=== PATIENT | female | born 1945 | race Caucasian/White ===

== ENCOUNTER 2016-11-18 07:25 | Day surgery (SDC) | payer MEDICARE, BC ==
[~2016-11-18] VITALS: Ht 152.4 cm; Wt 72.0 kg
[~2016-11-18 07:25] MED LIST: ASPIRIN 81M81 MG/TA2 PO; BENICAR40 MG PO; CO Q-1050 MG PO; COLACE 100100 MG/CAP PO; CRESTOR 10MG10 MG PO; CRESTOR5 MG PO; FENOGLIDE40 MG PO; LOFIBRA160 MG PO; NORCO 325 MG-51 TAB PO; PRAVACHOL 40MG40 MG PO; PREDNISONE10 MG PO; REQUIP 0.5MG0.5 MG PO; SLO NIACIN500 MG PO; TENORMIN 2525 MG/TAB PO
[2016-11-18 07:45] VITALS: BP 129/78; PULSE 75; TEMP 97.7
[2016-11-18] MEDS ORDERED: [UNRECOGNIZED DRUG - OTHER] PO (08:28)
[2016-11-18] MEDS ORDERED: PROBIOTIC ACID1 EAC3 PO (08:29)
[2016-11-18] MEDS ORDERED: [UNRECOGNIZED DRUG - OTHER] PO (08:29)
[2016-11-18] MEDS ORDERED: MULTI VITAMINS1 TAB PO (08:30)
[2016-11-18] MEDS ORDERED: [UNRECOGNIZED DRUG - OTHER] PO (08:31)
[2016-11-18] MEDS ORDERED: CHELATED MAGNESIUM PO (08:32)
[2016-11-18] MEDS ORDERED: [UNRECOGNIZED DRUG - OTHER] PO (08:32)
[2016-11-18] MEDS ORDERED: CHROMIUM PICOLI1 TA8 PO (08:33)
[2016-11-18] MEDS ORDERED: [UNRECOGNIZED DRUG - OTHER] PO (08:34)
[2016-11-18] MEDS ORDERED: NORVASC 5MG5 MG/TAB PO (08:34)
[2016-11-18] MEDS ORDERED: D3-5050000 IU PO (08:35)
[2016-11-18] MEDS ORDERED: NONI PO (08:35)
[2016-11-18 09:38] VITALS: BP 109/48; PULSE 60; TEMP 97.1
[2016-11-18 09:45] VITALS: BP 77/52; PULSE 66
[2016-11-18 10:00] VITALS: BP 107/57; PULSE 61
[2016-11-18 10:15] VITALS: BP 103/50; PULSE 60
== END 2016-11-18 10:40 | disposition home or self-care (01) ==
LOC: SDCO 07:25
DX: D12.6 Benign neoplasm of colon, unspecified (principal); K64.0 First degree hemorrhoids; I25.10 Atherosclerotic heart disease of native coronary artery without angina pectoris; I10 Essential (primary) hypertension; E78.00 Pure hypercholesterolemia, unspecified; Z90.5 Acquired absence of kidney; Z95.5 Presence of coronary angioplasty implant and graft; Z85.528 Personal history of other malignant neoplasm of kidney
CPT/HCPCS: OP; J2250; J3010; J7030

== ENCOUNTER 2017-11-27 15:39 | Observation (INO) | payer MEDICARE, BC ==
[~2017-11-27] VITALS: Ht 149.9 cm; Wt 71.5 kg
[~2017-11-27 15:39] MED LIST changes: +CHELATED MAGNESIUM PO; +CHROMIUM PICOLI1 TA8 PO; +D3-5050000 IU PO; +MULTI VITAMINS1 TAB PO; +NONI PO; +NORVASC 5MG5 MG/TAB PO; +PROBIOTIC ACID1 EAC3 PO; +[UNRECOGNIZED DRUG - OTHER] PO; +[UNRECOGNIZED DRUG - OTHER] PO; +[UNRECOGNIZED DRUG - OTHER] PO; +[UNRECOGNIZED DRUG - OTHER] PO; +[UNRECOGNIZED DRUG - OTHER] PO
[2017-11-27 16:05] LABS: BASO % 0.3 % (0.0-2.0); EOS # 0.2 (0.0-0.7); EOS % 1.2 % (0-4.0); GRAN # 12.1 (1.4-6.5); HEMATOCRIT 41.7 % (37.0-47.0); HEMOGLOBIN 13.8 g/dl (12.5-16.0); LYMPH # 1.5 (1.2-3.4); LYMPH % 9.9 % (20.0-51.0); MEAN CELL VOLUME 91 fl (80.0-100.0); MEAN CORPUSCULAR HEMOGLOBIN 30 pg (27.0-31.0); MEAN CORPUSCULAR HGB CONC 33 g/dl (33.0-37.0); MEAN PLATELET VOLUME 10.5 fl (7.4-10.4); MONO # 0.9 (0.1-0.6); MONO % 5.9 % (1.7-9.3); PLATELET COUNT 222 K/mm3 (130-400); RED BLOOD COUNT 4.58 M/mm3 (4.10-5.30); REDCELL DISTRIBUTION WIDTH-CV 14.5 % (11.5-14.5)
[2017-11-27] MEDS ORDERED: BENICAR40 MG PO (16:11)
[2017-11-27] MEDS ORDERED: TENORMIN 2525 MG/TAB PO (16:12)
[2017-11-27] MEDS ORDERED: LOFIBRA160 MG PO (16:12)
[2017-11-27] MEDS ORDERED: PRAVACHOL 40MG40 MG PO (16:12)
[2017-11-27] MEDS ORDERED: NORVASC 5MG5 MG/TAB PO (16:13)
[2017-11-27] MEDS ORDERED: ASPIRIN 81M81 MG/TA2 PO (16:13)
[2017-11-27] MEDS ORDERED: THE MEDICINE S200 M2 PO (16:14)
[2017-11-27 16:15] LABS: PROTHROMBIN TIME 11.7 SECONDS (9.7-12.8)
[2017-11-27] MEDS ORDERED: VITAMIND3 5000 (16:15)
[2017-11-27] MEDS ORDERED: PROBIOTIC FORMU1 CAP PO (16:16)
[2017-11-27 16:18] LABS: ALANINE AMINOTRANSFERASE 35 U/L (9-52); ALBUMIN 4.4 gm/dL (3.5-5.0); ALKALINE PHOSPHATASE 40 U/L (50-136); ANION GAP 8 mmol/L (7-16); AST,SGOT 50 U/L (15-37); BILIRUBIN,TOTAL 0.6 mg/dL (0.0-1.0); BLOOD UREA NITROGEN 21 mg/dL (7-17); CALCIUM 11.4 mg/dL (8.4-10.2); CARBON DIOXIDE 29 mmol/L (22-30); CHLORIDE 104 mmol/L (98-107); CREATININE, serum 1.09 mg/dL (0.52-1.25); GLUCOSE 105 mg/dL (74-106); PARTIAL THROMBOPLASTIN TIME 33.5 SECONDS (26.0-37.0); POTASSIUM 4.3 mmol/L (3.4-5.0); SODIUM 141 mmol/L (137-145); TOTAL PROTEIN 7.8 gm/dL (6.4-8.2)
[2017-11-27 16:30] LABS: TROPONIN-I < 0.012 ng/mL (0.000-0.034)
[2017-11-27 21:43] LABS: TSH w REFLEX 0.318 uIU/mL (0.465-4.680)
[2017-11-27 22:23] VITALS: BP 148/70; PULSE 75; TEMP 98.9
[2017-11-28] MEDS ORDERED: MULTI VITAMINS1 TAB PO (01:10)
[2017-11-28] MEDS ORDERED: [UNRECOGNIZED DRUG - OTHER] PO (01:17)
[2017-11-28] MEDS ORDERED: [UNRECOGNIZED DRUG - OTHER] PO (01:19)
[2017-11-28 03:30] VITALS: BP 110/43; BP 143/49; PULSE 65; PULSE 67; TEMP 97.8; TEMP 98
[2017-11-28 04:11] LABS: BASO % 0.2 % (0.0-2.0); EOS % 0.4 % (0-4.0); GRAN # 7.6 (1.4-6.5); GRAN % 77.5 % (42.2-75.2); LYMPH # 1.6 (1.2-3.4); LYMPH % 16.5 % (20.0-51.0); MEAN CELL VOLUME 90 fl (80.0-100.0); MEAN CORPUSCULAR HGB CONC 34 g/dl (33.0-37.0); MEAN PLATELET VOLUME 10.7 fl (7.4-10.4); MONO # 0.5 (0.1-0.6); PLATELET COUNT 196 K/mm3 (130-400); RED BLOOD COUNT 3.93 M/mm3 (4.10-5.30); REDCELL DISTRIBUTION WIDTH-CV 14.5 % (11.5-14.5)
[2017-11-28 04:26] LABS: ALANINE AMINOTRANSFERASE 33 U/L (9-52); ALBUMIN 3.4 gm/dL (3.5-5.0); ALKALINE PHOSPHATASE 32 U/L (50-136); ANION GAP 7 mmol/L (7-16); AST,SGOT 38 U/L (15-37); BILIRUBIN,TOTAL 0.5 mg/dL (0.0-1.0); BLOOD UREA NITROGEN 18 mg/dL (7-17); CALCIUM 10.3 mg/dL (8.4-10.2); CARBON DIOXIDE 24 mmol/L (22-30); CHLORIDE 107 mmol/L (98-107); CHOLESTEROL 112 mg/dL (120-200); CHOLESTEROL RISK RATIO 3.5; CREATININE, serum 1.01 mg/dL (0.52-1.25); GLUCOSE 100 mg/dL (74-106); HDL CHOLESTEROL 32 mg/dL; LDL CHOLESTEROL 51 mg/dL; MAGNESIUM 2.3 mg/dL (1.6-2.3); SODIUM 138 mmol/L (137-145); TOTAL PROTEIN 6.2 gm/dL (6.4-8.2); TRIGLYCERIDE 145 mg/dL
[2017-11-28 04:27] LABS: HEMATOCRIT 35.2 % (37.0-47.0); HEMOGLOBIN 11.8 g/dl (12.5-16.0); MEAN CORPUSCULAR HEMOGLOBIN 30 pg (27.0-31.0)
[2017-11-28 04:41] LABS: TROPONIN-I 6 HR POST INITIAL < 0.012 ng/mL (0.000-0.034)
[2017-11-28 07:32] VITALS: BP 176/71; PULSE 70; TEMP 98.4
[2017-11-28 08:31] LABS: COLLECTION METHOD CLEAN CATCH
[2017-11-28 08:38] LABS: PH 5 (5-8); SQUAMOUS EPITHELIAL None Seen /hpf; URINE APPEARANCE Clear; URINE BACTERIA None Seen /hpf; URINE BILIRUBIN Negative (NEGATIVE); URINE BLOOD Negative (NEGATIVE); URINE COLOR Yellow; URINE GLUCOSE Negative (NEGATIVE); URINE KETONE Negative (NEGATIVE); URINE LEUKOCYTE ESTERASE Negative (NEGATIVE); URINE NITRATE Negative (NEGATIVE); URINE PROTEIN(semi-quant) Negative (NEGATIVE); URINE RBC 0-2 /hpf; URINE UROBILINOGEN Negative (NEGATIVE)
[2017-11-28 11:15] VITALS: BP 146/66; PULSE 61; TEMP 98
[2017-11-28] MEDS ORDERED: NITROSTAT0.4 MG/TAB SL (16:00)
== END 2017-11-28 17:12 | disposition home or self-care (01) ==
LOC: COL.ER 15:39 → MEDICAL 19:12
PROVIDERS: Family Medicine; Internal Medicine; Nurse Practitioner Family
DX: R07.9 Chest pain, unspecified (principal); R55 Syncope and collapse; I25.10 Atherosclerotic heart disease of native coronary artery without angina pectoris; I10 Essential (primary) hypertension; E78.5 Hyperlipidemia, unspecified; G25.81 Restless legs syndrome; E21.3 Hyperparathyroidism, unspecified; I08.1 Rheumatic disorders of both mitral and tricuspid valves; Z90.5 Acquired absence of kidney; Z95.5 Presence of coronary angioplasty implant and graft; Z79.82 Long term (current) use of aspirin; Z90.710 Acquired absence of both cervix and uterus; Z85.528 Personal history of other malignant neoplasm of kidney
CPT/HCPCS: G0378; J1650; J3475; J7030; J7040; Q9967

== ENCOUNTER 2018-03-01 12:31 | Inpatient (IN) | payer MEDICARE, BC ==
[~2018-03-01] VITALS: Ht 149.9 cm; Wt 71.8 kg
[~2018-03-01 12:31] MED LIST changes: +NITROSTAT0.4 MG/TAB SL; +PROBIOTIC FORMU1 CAP PO; +THE MEDICINE S200 M2 PO; +VITAMIND3 5000; +[UNRECOGNIZED DRUG - OTHER] PO; +[UNRECOGNIZED DRUG - OTHER] PO
[2018-03-29 11:12] LABS: HEMATOCRIT 42.4 % (37.0-47.0); HEMOGLOBIN 13.8 g/dl (12.5-16.0); MEAN CELL VOLUME 91 fl (80.0-100.0); MEAN CORPUSCULAR HEMOGLOBIN 30 pg (27.0-31.0); MEAN CORPUSCULAR HGB CONC 33 g/dl (33.0-37.0); MEAN PLATELET VOLUME 10.7 fl (7.4-10.4); PLATELET COUNT 230 K/mm3 (130-400); RED BLOOD COUNT 4.65 M/mm3 (4.10-5.30); REDCELL DISTRIBUTION WIDTH-CV 14.1 % (11.5-14.5)
[2018-03-29 11:24] LABS: ALBUMIN 4.5 gm/dL (3.5-5.0); BILIRUBIN,TOTAL 0.4 mg/dL (0.0-1.0); CALCIUM 11.8 mg/dL (8.4-10.2); CREATININE, serum 1.18 mg/dL (0.52-1.25); POTASSIUM 5.4 mmol/L (3.4-5.0); TOTAL PROTEIN 7.7 gm/dL (6.4-8.2)
[2018-03-30] VITALS (395 sets, daily range): BP systolic 105–164; BP diastolic 45–93; PULSE 63–93; TEMP 97.6–98; O2SAT 92–100
[2018-03-30] MEDS ORDERED: THE MEDICINE S200 M2 PO (10:00)
[2018-03-30] MEDS ORDERED: ZOLOFT 50MG50 MG PO (10:05)
[2018-03-30] MEDS ORDERED: MAGNESIUM250 M1 PO (10:06)
[2018-03-30] MEDS ORDERED: NATURE'S BLE1000 MCG PO (10:07)
[2018-03-30] MEDS ORDERED: [UNRECOGNIZED DRUG - OTHER] PO (10:08)
[2018-03-30] MEDS ORDERED: IMMUNE PO (10:09)
--- NOTE | 2018-03-30 12:12 | NUR ---
DR CHAUHAN CALLED TO GIVE ORDERS VIA TELEPHONE FOR WHEN PATIENT RETURNS FROM OR.
[2018-03-30 13:35] LABS: BASO % 0.5 % (0.0-2.0); EOS % 0.1 % (0-4.0); GRAN # 6.8 (1.4-6.5); GRAN % 84.7 % (42.2-75.2); HEMATOCRIT 38.1 % (37.0-47.0); HEMOGLOBIN 12.3 g/dl (12.5-16.0); MEAN CELL VOLUME 92 fl (80.0-100.0); MEAN CORPUSCULAR HEMOGLOBIN 30 pg (27.0-31.0); MEAN CORPUSCULAR HGB CONC 32 g/dl (33.0-37.0); MONO # 0.2 (0.1-0.6); MONO % 2.1 % (1.7-9.3); PLATELET COUNT 177 K/mm3 (130-400); RED BLOOD COUNT 4.14 M/mm3 (4.10-5.30); REDCELL DISTRIBUTION WIDTH-CV 14.1 % (11.5-14.5)
--- NOTE | 2018-03-30 13:40 | NUR ---
REPORT RECEIVED FROM LINDA MARQUEZ IN OR.
--- NOTE | 2018-03-30 13:45 | NUR ---
PT RECEIVED FROM OR TO ICU ROOM 5. PT DROWSY BUT AROUSABLE AND ORIENTED X4. PT ON 7L OM D/T ISSUES WITH SATURATION IN OR. DR CHAUHAN CALLED AND NOTIFIED OF PATIENT'S STATUS. PROIVDER STATES HE WILL FINISH UP WITH CLINIC AND THEN BE IN TO SEE HER. PT'S SON AT BEDSIDE.
--- NOTE | 2018-03-30 13:45 | NUR ---
PT HAS 5 LAP SITES TO RIGHT ASPECT OF ABDOMEN, 1 INCISION SITE. SITES CLOSED WITH GLUE. NO BLEEDING, REDNESS, OR DRAINAGE NOTED TO SITES.
[2018-03-30 13:49] LABS: CALCIUM 10.4 mg/dL (8.4-10.2); CREATININE, serum 1.24 mg/dL (0.52-1.25); POTASSIUM 4.8 mmol/L (3.4-5.0)
--- NOTE | 2018-03-30 14:35 | NUR ---
DR CLAYTON PRESENT TO ASSESS PATIENT.
--- NOTE | 2018-03-30 19:45 | NUR ---
Patient resting in bed, assessment completed and charted at this time, please see documentation for details. All questions and concerns addressed, patient declined needing nurse for anything else at this time.
[2018-03-31] VITALS (481 sets, daily range): BP systolic 112–119; BP diastolic 47–60; PULSE 58–88; TEMP 97.7–98.6; O2SAT 84–100
[2018-03-31 05:43] LABS: BASO % 0.1 % (0.0-2.0); EOS % 0.2 % (0-4.0); GRAN # 8.4 (1.4-6.5); GRAN % 87.6 % (42.2-75.2); HEMOGLOBIN 11.2 g/dl (12.5-16.0); LYMPH # 0.7 (1.2-3.4); LYMPH % 7.7 % (20.0-51.0); MEAN CELL VOLUME 93 fl (80.0-100.0); MEAN CORPUSCULAR HEMOGLOBIN 30 pg (27.0-31.0); MEAN CORPUSCULAR HGB CONC 32 g/dl (33.0-37.0); MEAN PLATELET VOLUME 10.6 fl (7.4-10.4); MONO # 0.4 (0.1-0.6); PLATELET COUNT 174 K/mm3 (130-400); RED BLOOD COUNT 3.77 M/mm3 (4.10-5.30); REDCELL DISTRIBUTION WIDTH-CV 14.4 % (11.5-14.5)
[2018-03-31 05:51] LABS: ALBUMIN 3.2 gm/dL (3.5-5.0); BILIRUBIN,TOTAL 0.3 mg/dL (0.0-1.0); CALCIUM 9.7 mg/dL (8.4-10.2); CREATININE, serum 1.22 mg/dL (0.52-1.25); POTASSIUM 4.9 mmol/L (3.4-5.0); TOTAL PROTEIN 5.9 gm/dL (6.4-8.2)
--- NOTE | 2018-03-31 07:30 | NUR ---
Report received from Paul MARQUEZ and care resumed.
--- NOTE | 2018-03-31 07:50 | NUR ---
Dr Hernandezis in to see pt at this time. No new orders received. Ok to transfer to floor from his standpoint but will follow up with Dr Barrera.
--- NOTE | 2018-03-31 08:50 | NUR ---
Assessment complete. Pt denies any pain. Pt helped to chair with only standby assist and is tolerating well. Denies passing any gas at this time. Did tolerate light breakfast with nausea. No concerns at this time, will continue to follow.
--- NOTE | 2018-03-31 09:15 | NUR ---
Initial visit; Patient thanked Human Resource Statistician for looking in on her and wishing her well and God's blessings.
--- NOTE | 2018-03-31 09:45 | NUR ---
Dr Barrera in to see pt. Plan will be to transfer to floor.
--- NOTE | 2018-03-31 11:03 | NUR ---
EAMON met with patient. Patient lives independently at home alone. Her PCP is Dr Aleman and she obtains prescriptions at [facility]. She reports no home health or medical equipment used in the home. Patient also reports she has DPOA and a copy is in her chart. EAMON does not anticipate any needs upon discharge.
--- NOTE | 2018-03-31 11:21 | NUR ---
Pt remains resting in chair at this time. Denies any pain or concerns. Will update pt when bed for transfer becomes available.
--- NOTE | 2018-03-31 13:56 | NUR ---
Pt ambulated length of landeros and back to room. Tolerated well. Denies any pain or concerns. Pulliam removed as ordered. Pt waiting transfer to surgical floor. Will continue to follow.
--- NOTE | 2018-03-31 16:19 | NUR ---
Report called to Kira MARQUEZ on surgical floor. Pt to transfer to room 323 with chart and belongings. Family present.
--- NOTE | 2018-03-31 19:26 | NUR ---
Patient has done well since arrival to the floor, room 323. She has been sitting up in the chair. She did well with breakfast. She was able to urinate 300ml pale yellow urine. Int. Incision site edge well approximated. Will report off to night nurse
--- NOTE | 2018-03-31 21:39 | NUR ---
Shift assessment complete. Patient c/o 06/09 chronic back pain, declines medication at this time. Patient states, abdomen feels "achy" but does not want pain medication. Will continue to assess.
[2018-04-01 00:30] VITALS: BP 128/59; PULSE 87; TEMP 98.3
--- NOTE | 2018-04-01 00:52 | NUR ---
Patient resting comfortably in bed. Denies pain. No needs at this time. Will continue to assess.
[2018-04-01 04:10] VITALS: BP 126/48; PULSE 75; TEMP 97.6
[2018-04-01 06:52] LABS: HEMOGLOBIN 10.8 g/dl (12.5-16.0); MEAN CELL VOLUME 92 fl (80.0-100.0); MEAN CORPUSCULAR HEMOGLOBIN 30 pg (27.0-31.0); MEAN CORPUSCULAR HGB CONC 32 g/dl (33.0-37.0); MEAN PLATELET VOLUME 10.8 fl (7.4-10.4); PLATELET COUNT 191 K/mm3 (130-400); RED BLOOD COUNT 3.63 M/mm3 (4.10-5.30); REDCELL DISTRIBUTION WIDTH-CV 14.3 % (11.5-14.5)
[2018-04-01 07:03] LABS: HEMATOCRIT 33.3 % (37.0-47.0)
[2018-04-01 07:06] LABS: BILIRUBIN,TOTAL 0.3 mg/dL (0.0-1.0); CALCIUM 9.9 mg/dL (8.4-10.2); CREATININE, serum 1.32 mg/dL (0.52-1.25); POTASSIUM 4.6 mmol/L (3.4-5.0); TOTAL PROTEIN 5.8 gm/dL (6.4-8.2)
[2018-04-01 07:37] VITALS: BP 97/65; PULSE 77; TEMP 98
--- NOTE | 2018-04-01 08:01 | NUR ---
Pt is awake and A/O x4, sitting up in bed. She denies pain or discomfort at this time. Surgical incision sites to abdomen are CDI, open to air. Saline lock to left FA is free of complications. Pt is up as tolerated in room. Tolerating general diet. Pt reports passing flatus, no BM yet. Pt denies any other needs, will monitor.
--- NOTE | 2018-04-01 10:24 | NUR ---
First visit from the pottery kiln builder. No needs right now.
[2018-04-01 11:21] VITALS: BP 117/55; PULSE 72; TEMP 97.3
[2018-04-01 16:34] VITALS: BP 144/58; PULSE 72; TEMP 97.9
--- NOTE | 2018-04-01 18:00 | NUR ---
Patient has been doing well since this nurse took over at 1000. She has been up walking several times. Her IVF's ordered by Dr Barrera are almost complete. Minimal complaints of pain today. No complaints of nausea. No other changes at this time. Call light within reach. She is sitting up in the recliner at this time.
--- NOTE | 2018-04-01 21:00 | NUR ---
Patient up ad neli in room, voiding clear yellow urine. Takes HS meds without problem. Rubbed patient with some ointment she brought from home. SL to left forearm without redness or swelling. Lap sites to abdomen glued and dry. Denies pain at this time.
[2018-04-01 21:13] VITALS: BP 133/70; PULSE 75; TEMP 98.8
--- NOTE | 2018-04-01 22:00 | NUR ---
Patient down in bed, complains of not being able to breathe well. Assisted patient up in bed, placed oxygen on at 2L/NC for SaO2 of 88%. HOB elevated for comfort.
--- NOTE | 2018-04-02 00:05 | NUR ---
Patient takes ES Tylenol at this time. Reports feeling better after repositioning and the oxygen. Up to void and back to bed. No other complaints offered at this time.
[2018-04-02 00:37] VITALS: BP 125/65; PULSE 76; TEMP 98.2
[2018-04-02 03:56] VITALS: BP 132/53; PULSE 87; TEMP 97.7
[2018-04-02 05:28] LABS: HEMOGLOBIN 10.7 g/dl (12.5-16.0); MEAN CELL VOLUME 90 fl (80.0-100.0); MEAN CORPUSCULAR HEMOGLOBIN 30 pg (27.0-31.0); MEAN CORPUSCULAR HGB CONC 33 g/dl (33.0-37.0); MEAN PLATELET VOLUME 10.7 fl (7.4-10.4); PLATELET COUNT 172 K/mm3 (130-400); RED BLOOD COUNT 3.57 M/mm3 (4.10-5.30); REDCELL DISTRIBUTION WIDTH-CV 14.6 % (11.5-14.5)
[2018-04-02 05:33] LABS: HEMATOCRIT 32.2 % (37.0-47.0)
[2018-04-02 05:39] LABS: ALBUMIN 2.9 gm/dL (3.5-5.0); BILIRUBIN,TOTAL 0.4 mg/dL (0.0-1.0); CALCIUM 9.6 mg/dL (8.4-10.2); CREATININE, serum 1.11 mg/dL (0.52-1.25); POTASSIUM 3.9 mmol/L (3.4-5.0); TOTAL PROTEIN 5.6 gm/dL (6.4-8.2)
--- NOTE | 2018-04-02 06:30 | NUR ---
Patient reports feeling better this AM. Takes AM ES Tylenol and Protonix without problem.
[2018-04-02 08:51] VITALS: BP 145/61; PULSE 80; TEMP 97.4
[2018-04-02 11:02] VITALS: BP 155/73; PULSE 79; TEMP 97.6
--- NOTE | 2018-04-02 13:00 | NUR ---
Patient has been sitting up since this am. Dr Barrera came to see her. He changed some of her medications around. She stated having increased back pain. She has chronic back pain but she states tylenol usually helps. Gave her ultram and she is doing a lot better now. Also placed a hot pack to her back. She is getting ready to take a shower. She has been ambulating in the hallways. No complaints of nausea. She had asked for a scan or x-ray of her back, notified Dr Barrera. He did not give any orders. No other changes at this time. Call light within reach.
[2018-04-02 16:39] VITALS: BP 149/61; PULSE 75; TEMP 98.3
--- NOTE | 2018-04-02 18:00 | NUR ---
Patient has been doing better this afternoon. She is tolerating her diet well. Pain is under control at this time. No other changes at this time. Call light within reach.
[2018-04-02 19:34] VITALS: BP 153/73; PULSE 76; TEMP 98.2
--- NOTE | 2018-04-02 20:00 | NUR ---
Patient resting in bed watching television at this time. Patient is alert and oriented, answers questions appropriately. Lap sites and small midline are all CDI. Patient denies pain or further needs at this time, call light within reach.
[2018-04-03 03:33] VITALS: BP 163/65; PULSE 79; TEMP 98
[2018-04-03 05:13] LABS: MEAN CELL VOLUME 90 fl (80.0-100.0); MEAN CORPUSCULAR HEMOGLOBIN 30 pg (27.0-31.0); MEAN CORPUSCULAR HGB CONC 33 g/dl (33.0-37.0); MEAN PLATELET VOLUME 10.3 fl (7.4-10.4); PLATELET COUNT 179 K/mm3 (130-400); RED BLOOD COUNT 3.37 M/mm3 (4.10-5.30); REDCELL DISTRIBUTION WIDTH-CV 14.5 % (11.5-14.5)
[2018-04-03 05:14] LABS: HEMATOCRIT 30.2 % (37.0-47.0)
[2018-04-03 05:24] LABS: ALBUMIN 2.9 gm/dL (3.5-5.0); BILIRUBIN,TOTAL 0.6 mg/dL (0.0-1.0); CALCIUM 9.8 mg/dL (8.4-10.2); CREATININE, serum 1.04 mg/dL (0.52-1.25); POTASSIUM 3.3 mmol/L (3.4-5.0); TOTAL PROTEIN 5.5 gm/dL (6.4-8.2)
[2018-04-03 07:29] VITALS: BP 152/67; PULSE 87; TEMP 98.9
[2018-04-03 11:37] VITALS: BP 158/65; PULSE 77; TEMP 98.4
--- NOTE | 2018-04-03 11:57 | NUR ---
Patient sitting up in chair. Her son at bedside. They have been up and ambulated the halls. Patient is patiently waiting on Doctors to round, she is really wanting to discharge home today. Patient O2 sats have been low 90% she has been off and on O2 at 1 L to keep sats greater than 90%. She has had complaints of pain, she continues with tylenol as scheduled. Pain is chronic in her back, heating pad has helped. Patient K+ replaced per orders. She is tolerating diet. She reports no issues with voiding or bowel function. Will monitor.
--- NOTE | 2018-04-03 14:41 | NUR ---
Dr. Barrera rounded. Orders obtained. Lasix given & reviewed with patient. Patient and this nurse ambulated down the halls, she did well, but did have dyspnea with exertion. Spoke with radiology & notfied about MRI orders & since they are non-emergent in there criteria they will not be completed until Thursday.
[2018-04-03 15:51] VITALS: BP 153/58; PULSE 75; TEMP 98.5
--- NOTE | 2018-04-03 17:30 | NUR ---
Patient reports minimal appetite. Really encouraged her try and order something, anything that sounds good. Patient provided with a KPAD for back discomfort, she reports is has helped. keeping strict I&O since lasix was given. Alton garcia.
[2018-04-03 17:52] VITALS: BP 160/55; PULSE 84
--- NOTE | 2018-04-03 17:53 | NUR ---
Patient sitting up in chair. Dinner ordered. Tyelnol as scheduled for back pain. She was concerned her BP is low. Rechecked vitals. O2 sat 88% on room air-Patient placed back on 2L humidified. Her BP is stable, elevated actually.
[2018-04-03 20:58] VITALS: BP 158/86; PULSE 89
[2018-04-04 03:38] VITALS: BP 124/71; PULSE 70; TEMP 98.1
--- NOTE | 2018-04-04 05:32 | NUR ---
Patient rested well overnight. Patient is alert and oriented while awake, answers questions appropriately; awakens easily. Before HS patient had a small episode of emesis, administered PRN zofran. Patient rested well afterward, reported no further episodes of nausea. Patient has denied further needs at this time, call light within reach.
[2018-04-04 07:15] LABS: BASO % 0.4 % (0.0-2.0); EOS # 0.3 (0.0-0.7); EOS % 3.9 % (0-4.0); GRAN # 5.5 (1.4-6.5); LYMPH # 1.3 (1.2-3.4); LYMPH % 17.2 % (20.0-51.0); MEAN CELL VOLUME 92 fl (80.0-100.0); MEAN CORPUSCULAR HGB CONC 32 g/dl (33.0-37.0); MEAN PLATELET VOLUME 10.7 fl (7.4-10.4); MONO # 0.5 (0.1-0.6); MONO % 6.6 % (1.7-9.3); PLATELET COUNT 201 K/mm3 (130-400); REDCELL DISTRIBUTION WIDTH-CV 14.5 % (11.5-14.5)
[2018-04-04 07:26] LABS: ALBUMIN 2.9 gm/dL (3.5-5.0); BILIRUBIN,TOTAL 0.6 mg/dL (0.0-1.0); CREATININE, serum 1.07 mg/dL (0.52-1.25); TOTAL PROTEIN 5.6 gm/dL (6.4-8.2)
[2018-04-04 07:30] LABS: HEMATOCRIT 30.3 % (37.0-47.0); HEMOGLOBIN 9.8 g/dl (12.5-16.0); MEAN CORPUSCULAR HEMOGLOBIN 30 pg (27.0-31.0)
[2018-04-04 07:58] VITALS: BP 113/52; PULSE 82; TEMP 98.5
--- NOTE | 2018-04-04 10:41 | NUR ---
Patient resting in bed at this time, call light in reach and family member by her side. Patient in pleasent mood at this time. Tolerating diet well. Was worried about having nausea following taking her morning pills so gave Zofran prior to giving morning meds. Patient took pills with apple sauce. She has not had a BM today, so this nurse ordered some pears for her to help move this process along. Will continue to monitor.
[2018-04-04] MEDS ORDERED: ULTRAM 50MG TAB50 MG PO (11:03)
[2018-04-04] MEDS ORDERED: HCTZ12.5TAB PO (11:05)
[2018-04-04] MEDS ORDERED: FLORINEF ACETA0.1 MG PO (11:06)
[2018-04-04] MEDS ORDERED: PROTONIX 40MG T40 MG PO (11:06)
[2018-04-04] MEDS ORDERED: CORTEF 20MG TAB20 MG PO (11:09)
[2018-04-04] MEDS ORDERED: K-TAB10 PO (11:11)
[2018-04-04 11:43] VITALS: BP 150/26; PULSE 67; TEMP 98
--- NOTE | 2018-04-04 14:00 | NUR ---
Removed IV from left forearm and IV catheter was intact. Secured area with gauze and coban. Patient tolerated with minimal discomfort observed. Patient Health Summary, Discharge Summary, and Home Meds printed and reviewed with patient. Noting the new meds and the meds that had been discontinued. She received her prescription for Tramadol per Dr. Barrera. Called pharmacy to verify meds and to find out when meds would be ready for pick up and delivery driver from patient. Belongings gathered by ALMA/Jacki and JOSE ALFREDO/[employer] including purse, phone, smelter charger, reading glasses and dentures. Patient transported via wheelchair by ALMA/Jacki and seatbelted for ride home with son. Patient denied questions.
--- NOTE | 2018-04-04 14:04 | NUR ---
Patient was discharged and was to have an MRI tomorrow, but patient requested that it be cancelled. This was cancelled and patient will be following up with Dr. Barrera and Dr. Aleman in one week and can get new orders for the MRI at that time. This was communicated to Patient's son Alfonso. He voiced understanding.
== END 2018-04-04 13:40 | disposition home or self-care (01) | DRG 615 ==
LOC: INPTSU 03-30 08:03 → SURG 03-30 11:00 → ICU 03-30 14:34 → SURG 03-31 16:23
PROVIDERS: Internal Medicine Nephrology; ADMIT Urology
PROC: 0GT34ZZ Resection of Right Adrenal Gland, Percutaneous Endoscopic Approach (ICD-10-PCS; principal; 2018-03-30 11:00)
DX: E27.8 Other specified disorders of adrenal gland (principal); I25.10 Atherosclerotic heart disease of native coronary artery without angina pectoris; Z95.5 Presence of coronary angioplasty implant and graft; E78.5 Hyperlipidemia, unspecified; I10 Essential (primary) hypertension; Z85.53 Personal history of malignant neoplasm of renal pelvis; E83.52 Hypercalcemia; Z90.5 Acquired absence of kidney; E66.9 Obesity, unspecified; M54.9 Dorsalgia, unspecified; G89.29 Other chronic pain
CPT/HCPCS: A4314; A9284; C9113; J0690; J1100; J1650; J1720; J1885; J1940; J2405; J2704; J2710; J3010; J7030; J7120

== ENCOUNTER → 2018-06-30 | Outpatient (CLI) | payer MEDICARE, BC ==
[~2018-06-30] MED LIST changes: +CORTEF 20MG TAB20 MG PO; +FLORINEF ACETA0.1 MG PO; +HCTZ12.5TAB PO; +IMMUNE PO; +K-TAB10 PO; +MAGNESIUM250 M1 PO; +NATURE'S BLE1000 MCG PO; +PROTONIX 40MG T40 MG PO; +ULTRAM 50MG TAB50 MG PO; +ZOLOFT 50MG50 MG PO; +[UNRECOGNIZED DRUG - OTHER] PO
== END ==
LOC: COL.RAD 09:37
DX: C64.2 Malignant neoplasm of left kidney, except renal pelvis (principal)
CPT/HCPCS: Q9967

== ENCOUNTER → 2018-10-18 | Outpatient (CLI) | payer MEDICARE, BC | LOC: COL.RAD 09:37 | DX: R10.2 Pelvic and perineal pain (principal); Z90.710 Acquired absence of both cervix and uterus ==

== ENCOUNTER → 2019-01-17 | Outpatient (CLI) | payer MEDICARE, BC | LOC: COL.RAD 09:10 | DX: C64.2 Malignant neoplasm of left kidney, except renal pelvis (principal); K76.0 Fatty (change of) liver, not elsewhere classified; K80.20 Calculus of gallbladder without cholecystitis without obstruction; K57.20 Diverticulitis of large intestine with perforation and abscess without bleeding; Z90.5 Acquired absence of kidney; Z90.710 Acquired absence of both cervix and uterus | CPT/HCPCS: Q9967 ==

== ENCOUNTER → 2019-05-24 | Outpatient (CLI) | payer MEDICARE, BC ==
[2019-05-24 14:56] LABS: COLLECTION METHOD CLEAN CATCH
[2019-05-24 15:02] LABS: MUCOUS Present /lpf; PH 5 (5-8); SQUAMOUS EPITHELIAL 0-2 /hpf; URINE APPEARANCE Hazy; URINE BACTERIA Rare /hpf; URINE BILIRUBIN Negative (NEGATIVE); URINE BLOOD Negative (NEGATIVE); URINE COLOR Yellow; URINE GLUCOSE Negative (NEGATIVE); URINE KETONE Negative (NEGATIVE); URINE LEUKOCYTE ESTERASE Trace (NEGATIVE); URINE NITRATE Negative (NEGATIVE); URINE PROTEIN(semi-quant) Negative (NEGATIVE); URINE RBC 0-2 /hpf; URINE UROBILINOGEN Negative (NEGATIVE)
== END ==
LOC: COL.LAB 14:26
PROVIDERS: Urology
DX: R31.0 Gross hematuria (principal)

== ENCOUNTER 2019-10-18 12:19 | Day surgery (SDC) | payer MEDICARE, BC ==
[~2019-10-18] VITALS: Ht 149.9 cm; Wt 73.3 kg
[~2019-10-18 12:19] MED LIST changes: +ONE-A-DAY ESSE1 EACH PO
[2019-10-18 12:49] VITALS: BP 144/62; PULSE 64; TEMP 97.6
[2019-10-18] MEDS ORDERED: PROTONIX 40MG T40 MG PO (12:54)
[2019-10-18] MEDS ORDERED: FLORINEF ACETA0.1 MG PO (12:54)
[2019-10-18] MEDS ORDERED: HCTZ12.5TAB PO (12:55)
[2019-10-18] MEDS ORDERED: CORTEF 10MG TAB10 MG PO (12:56)
[2019-10-18] MEDS ORDERED: [UNRECOGNIZED DRUG - REMARK] PO (12:58)
[2019-10-18] MEDS ORDERED: VITAMIN D31000 I1 PO (12:59)
[2019-10-18] MEDS ORDERED: BENICAR40 MG PO (12:59)
[2019-10-18] MEDS ORDERED: PROBIOTIC FORMU1 CAP PO (13:00)
[2019-10-18] MEDS ORDERED: NATURAL MAGNES200 MG PO (13:00)
[2019-10-18] MEDS ORDERED: [UNRECOGNIZED DRUG - OTHER] PO (13:01)
[2019-10-18] MEDS ORDERED: K-TAB10 PO (13:02)
[2019-10-18] MEDS ORDERED: THE MEDICINE S200 M2 PO (13:02)
[2019-10-18] MEDS ORDERED: NORVASC 10MG10 MG PO (13:05)
[2019-10-18] MEDS ORDERED: ZEBETA 5MG5 MG PO (13:06)
[2019-10-18 17:05] VITALS: BP 90/60; PULSE 73; TEMP 97.8
--- NOTE | 2019-10-18 17:05 | NUR ---
TO RM 8 PER CART FRO PACU. DROWSY,ORIENTED X3 AND TALKING WITH STAFF. DENIES PAIN OR DISCOMFORT AT CURRENT TIME DENIES NAUSEA OR VOMITING. RECEIVED WATER AND JELLO.
[2019-10-18] MEDS ORDERED: ULTRAM 50MG TAB50 MG PO (17:11)
[2019-10-18 17:20] VITALS: BP 124/42; PULSE 66
[2019-10-18 17:35] VITALS: BP 109/47; PULSE 72
--- NOTE | 2019-10-18 17:35 | NUR ---
SON AT BEDSIDE TALKING WITH PATIENT.
--- NOTE | 2019-10-18 17:50 | NUR ---
AMBULATED TO BATHROOM WITH 2 ASSIST. WHILE IN BATHROOM, PATIENT BECAME NAUSEATED AND HAD EMESIS. AFTER EMESIS PATIENT STATED SHE FELT BETTER. 1/2 PAD NOTED TO HAVE BLOODY DRAINAGE. SMALL CLOTS NOTED IN TOILET AND ON WIPES. RECEIVED MARK CARE AND NEW PAD PLACED.
[2019-10-18 18:00] VITALS: BP 132/56; PULSE 72
--- NOTE | 2019-10-18 18:00 | NUR ---
AMBULATED BACK TO WITH ASSIST AND TOLERATED WELL. REQUETED TO REST. RECEIVED SPRITE AND CRACKERS. TALKING WITH SON.
--- NOTE | 2019-10-18 18:15 | NUR ---
SON AND PATIENT RECEIVED DISCHARGE INSTRUCTIONS AND VERBALIZED UNDERSTANDING. IV AND INT DISCONTINUED
--- NOTE | 2019-10-18 18:25 | NUR ---
PATIENT GETTING DRESSED AND SON WENT TO GET THE CAR.
--- NOTE | 2019-10-18 18:29 | NUR ---
DISCHARGED PER WC BY NURSING STAFF TO PRIVATE CAR IN CARE OF SON Philip FRANK.
== END 2019-10-18 18:31 | disposition home or self-care (01) ==
LOC: SDCO 12:19
DX: C79.82 Secondary malignant neoplasm of genital organs (principal); D35.01 Benign neoplasm of right adrenal gland; Z85.528 Personal history of other malignant neoplasm of kidney; E89.6 Postprocedural adrenocortical (-medullary) hypofunction; I25.2 Old myocardial infarction; I10 Essential (primary) hypertension; I25.10 Atherosclerotic heart disease of native coronary artery without angina pectoris; G47.33 Obstructive sleep apnea (adult) (pediatric); G25.81 Restless legs syndrome; F32.9 Major depressive disorder, single episode, unspecified; E78.5 Hyperlipidemia, unspecified; E78.00 Pure hypercholesterolemia, unspecified; E83.52 Hypercalcemia; E55.9 Vitamin D deficiency, unspecified; Z90.710 Acquired absence of both cervix and uterus; Z90.5 Acquired absence of kidney; Z95.5 Presence of coronary angioplasty implant and graft; Z79.82 Long term (current) use of aspirin; Z79.899 Other long term (current) drug therapy; Z83.79 Family history of other diseases of the digestive system
CPT/HCPCS: J2704; J3010; J7120

== ENCOUNTER 2020-01-09 12:27 | Inpatient (IN) | payer MEDICARE, BC ==
[~2020-01-09] VITALS: Ht 149.9 cm; Wt 72.1 kg
[~2020-01-09 12:27] MED LIST changes: +CORTEF 10MG TAB10 MG PO; +NATURAL MAGNES200 MG PO; +NORVASC 10MG10 MG PO; +VITAMIN D31000 I1 PO; +ZEBETA 5MG5 MG PO; +[UNRECOGNIZED DRUG - OTHER] PO; +[UNRECOGNIZED DRUG - REMARK] PO
[2020-01-09 13:10] LABS: INR 1.2 (0.8-3.0); PROTHROMBIN TIME 13.7 SECONDS (9.7-12.8)
[2020-01-09 13:12] LABS: PARTIAL THROMBOPLASTIN TIME 40.2 SECONDS (26.0-37.0)
[2020-01-09 13:16] LABS: BASO # 0.1 (0.0-0.2); BASO % 0.6 % (0.0-2.0); EOS # 0.3 (0.0-0.7); EOS % 2.7 % (0-4.0); GRAN # 5.7 (1.4-6.5); GRAN % 58.5 % (42.2-75.2); HEMATOCRIT 43.1 % (37.0-47.0); LYMPH # 2.3 (1.2-3.4); LYMPH % 23.9 % (20.0-51.0); MEAN CELL VOLUME 82 fl (80.0-100.0); MEAN CORPUSCULAR HEMOGLOBIN 27 pg (27.0-31.0); MEAN CORPUSCULAR HGB CONC 33 g/dl (33.0-37.0); MEAN PLATELET VOLUME 11.1 fl (7.4-10.4); MONO # 1.4 (0.1-0.6); MONO % 13.8 % (1.7-9.3); PLATELET COUNT 163 K/mm3 (130-400); RED BLOOD COUNT 5.23 M/mm3 (4.10-5.30)
[2020-01-09 14:22] LABS: ALBUMIN 3.9 gm/dL (3.5-5.0); BILIRUBIN,TOTAL 1.6 mg/dL (0.0-1.0); CREATININE, serum 4.19 (0.52-1.25); POTASSIUM 3.8 mmol/L (3.4-5.0); TOTAL PROTEIN 6.8 gm/dL (6.4-8.2)
[2020-01-09 14:34] LABS: C-REACTIVE PROTEIN 17.1 mg/dL (0.0-0.9); TROPONIN-I 0.069 ng/mL (0.000-0.035)
[2020-01-09] MEDS ORDERED: PROTONIX 40MG T40 MG PO (17:47)
[2020-01-09] MEDS ORDERED: CORTEF 10MG TAB10 MG PO (17:50)
[2020-01-09] MEDS ORDERED: FLORINEF ACETA0.1 MG PO (17:50)
[2020-01-09] MEDS ORDERED: HCTZ12.5TAB PO (17:50)
[2020-01-09] MEDS ORDERED: BENICAR40 MG PO (17:51)
[2020-01-09] MEDS ORDERED: ZOLOFT 100MG100 MG PO (17:52)
[2020-01-09] MEDS ORDERED: THE MEDICINE S200 M2 PO (17:53)
[2020-01-09] MEDS ORDERED: NORVASC 5MG5 MG/TAB PO (17:53)
[2020-01-09] MEDS ORDERED: PRAVACHOL10 MG PO (17:53)
[2020-01-09] MEDS ORDERED: ASPIRIN 81M81 MG/TA2 PO (17:54)
[2020-01-09] MEDS ORDERED: FENOGLIDE40 MG PO (17:54)
[2020-01-09] MEDS ORDERED: SUTENT37.5 MG PO (17:55)
[2020-01-09 18:24] VITALS: BP 100/47; PULSE 76; TEMP 98.6
--- NOTE | 2020-01-09 18:40 | NUR ---
Patient up from ER. Patient oriented to room. Will report off to talkback host.
--- NOTE | 2020-01-09 20:00 | NUR ---
Pt currently resting in bed. Pt has her call light within reach. Pt did have some complaints of soarness to her bottom. Barrier cream was applied at this time. Pt was able to stand to get her bed changed. Pt has her call light within reach and her bed is in lowest position. I did leave pt bed alarm on for safety.
[2020-01-10 01:00] VITALS: BP 112/40; PULSE 76; TEMP 97
--- NOTE | 2020-01-10 02:00 | NUR ---
Pt ambulated to the restroom at this time with gait belt. Pt did complain of her bottom and barrier cream was applied at this time and a new brief was put on. Pt did seem slightly confused but she was able to tell me where she was and her date of . Pt has her call light within reach and her bed is in lowest position.
[2020-01-10 02:09] LABS: COLLECTION METHOD CLEAN CATCH
[2020-01-10 02:39] LABS: MUCOUS Present /lpf; PH 5 (5-8); SQUAMOUS EPITHELIAL 0-2 /hpf; URINE APPEARANCE Hazy; URINE BACTERIA None Seen /hpf; URINE BILIRUBIN Negative (NEGATIVE); URINE BLOOD 1+ (NEGATIVE); URINE COLOR Amber; URINE GLUCOSE Negative (NEGATIVE); URINE KETONE Trace (NEGATIVE); URINE LEUKOCYTE ESTERASE 2+ (NEGATIVE); URINE NITRATE Negative (NEGATIVE); URINE PROTEIN(semi-quant) Negative (NEGATIVE); URINE UROBILINOGEN Negative (NEGATIVE)
[2020-01-10 04:20] VITALS: BP 98/42; PULSE 70; TEMP 98.3
[2020-01-10 06:33] LABS: BASO % 0.2 % (0.0-2.0); GRAN # 3.3 (1.4-6.5); GRAN % 80.5 % (42.2-75.2); HEMATOCRIT 37.5 % (37.0-47.0); HEMOGLOBIN 12.2 g/dl (12.5-16.0); LYMPH # 0.5 (1.2-3.4); LYMPH % 12.8 % (20.0-51.0); MEAN CELL VOLUME 84 fl (80.0-100.0); MEAN CORPUSCULAR HEMOGLOBIN 27 pg (27.0-31.0); MEAN CORPUSCULAR HGB CONC 33 g/dl (33.0-37.0); MEAN PLATELET VOLUME 10.6 fl (7.4-10.4); MONO # 0.2 (0.1-0.6); MONO % 5.8 % (1.7-9.3); PLATELET COUNT 104 K/mm3 (130-400); RED BLOOD COUNT 4.47 M/mm3 (4.10-5.30); REDCELL DISTRIBUTION WIDTH-CV 15.9 % (11.5-14.5)
[2020-01-10 06:41] LABS: ALBUMIN 3.6 gm/dL (3.5-5.0); BILIRUBIN,TOTAL 1.1 mg/dL (0.0-1.0); CALCIUM 9.6 mg/dL (8.4-10.2); CREATININE, serum 2.8 (0.52-1.25); POTASSIUM 4.3 mmol/L (3.4-5.0); TOTAL PROTEIN 6.5 gm/dL (6.4-8.2)
--- NOTE | 2020-01-10 08:08 | NUR ---
PT UP TO BR VOIDED AND RETURNED TO BED, AMBULATES WITH SHUFFLING GAIT WITH ASSIST X1. PT DENIES PAIN N/V AT THIS TIME. THERAPY IN TO WORK WITH PT. IV TO RAC LR RUNNING. PT TOLERATING CL DIET THIS AM.
--- NOTE | 2020-01-10 08:54 | NUR ---
PT PERIANAL AREA EXCORITATED APPLIED BARRIOR CREAM FOR PT COMFORT. PT HAVING LIQUID STOOLS. NEED GI PANEL COLLECTED. CNAS AND PT REMINDED OF SAMPLE NEED. ALL VERBALIZED UNDERSTANDING.
[2020-01-10 09:07] VITALS: BP 113/49; PULSE 65; TEMP 97.4
--- NOTE | 2020-01-10 11:19 | NUR ---
First visit from the sports internship. No needs right now.
[2020-01-10 12:11] VITALS: BP 128/49; PULSE 72; TEMP 98.1
[2020-01-10 17:08] LABS: CLOSTRIDIUM DIFF A/B NEG; CLOSTRIDIUM DIFF A/B INTERP NonToxigenic C.diff
[2020-01-10 18:08] VITALS: BP 116/52; PULSE 79; TEMP 98
[2020-01-10 20:27] VITALS: BP 109/51; PULSE 72; TEMP 98.8
--- NOTE | 2020-01-10 21:09 | NUR ---
Pt currently sitting up in bed. Pt ambulated to the restroom. Pt was very red in her groin area and stated that it arnold really bad. Throughout the day barrier cream was used. Carmen the hospitalist was contacted and we will try to use nystatin cream to see if this improves the pts condition. Pt has her call light within reach. She has no other concerns at this time.
[2020-01-11 00:21] VITALS: BP 104/41; PULSE 75; TEMP 98.1
--- NOTE | 2020-01-11 03:00 | NUR ---
Pt has ambulated to the restroom a couple of time. Pt has been cleaned using the personal cleaning wipes and the Nystatin cream was used each time. Pt did stated that it really hurts when she wipes. Pt is currrentlyl back in bed and has her call light within reach.
[2020-01-11 04:13] VITALS: BP 134/57; PULSE 81; TEMP 97.9
[2020-01-11 06:08] LABS: BASO % 0.3 % (0.0-2.0); EOS # 0.1 (0.0-0.7); GRAN # 2.3 (1.4-6.5); GRAN % 74.1 % (42.2-75.2); HEMOGLOBIN 10.7 g/dl (12.5-16.0); LYMPH # 0.5 (1.2-3.4); LYMPH % 16.7 % (20.0-51.0); MEAN CELL VOLUME 84 fl (80.0-100.0); MEAN CORPUSCULAR HEMOGLOBIN 27 pg (27.0-31.0); MEAN CORPUSCULAR HGB CONC 32 g/dl (33.0-37.0); MEAN PLATELET VOLUME 10.8 fl (7.4-10.4); MONO # 0.2 (0.1-0.6); MONO % 5.9 % (1.7-9.3); PLATELET COUNT 94 K/mm3 (130-400); RED BLOOD COUNT 3.97 M/mm3 (4.10-5.30); REDCELL DISTRIBUTION WIDTH-CV 16.4 % (11.5-14.5)
[2020-01-11 06:19] LABS: CALCIUM 9.5 mg/dL (8.4-10.2); CREATININE, serum 1.55 (0.52-1.25); POTASSIUM 3.9 mmol/L (3.4-5.0)
[2020-01-11 06:24] LABS: HEMATOCRIT 33.3 % (37.0-47.0)
[2020-01-11] MEDS ORDERED: NYSTATIN CREAM15 GM TP (09:01)
[2020-01-11 09:08] VITALS: BP 140/83; PULSE 72; TEMP 98.5
--- NOTE | 2020-01-11 09:10 | NUR ---
DR. SAVAGE IN TO SEE PATEINT DISCHARGE ORDERS RECIEVED PT PLANS ON DISCHAGE HOME.
--- NOTE | 2020-01-11 10:07 | NUR ---
EAMON met with the patient to discuss discharge plan. The patient lives alone in [place]. She states that her son, Alfonso Espinal (ph#[phone]), also lives in [place]. She reports independence with ADLs and does not have any DME. The patient's PCP is Dr. Sergey Aleman and she receives her medications from [facility]. She reports no difficulties obtaining her meds. The patient does not have a DPOA-HC in EMR, but she states that she does have one completed and that she designated her son, Alfonso. The patient plans to return home upon discharge. PT/OT are recommending home health. EAMON discussed this with the patient. The patient states that she would be interested in home health. EAMON informed her of the different home health agencies. The patient states that she would need to talk to her son about this. She was agreeable for EAMON to contact her son. The patient's son, Alfonso, is known to this SW and he works at the hospital. EAMON contacted Alfonso and reviewed the above information with him. Alfonso is agreeable to home health for the patient from [facility]. EAMON contacted and faxed a referral and the patient's d/c orders to Beatris at [facility]. SW awaiting their screen.
[2020-01-11 12:25] VITALS: BP 131/47; PULSE 72; TEMP 98
--- NOTE | 2020-01-11 12:53 | NUR ---
Beatris, at [facility], reports that they are able to accept the patient for services. The patient is to discharge back home today, 01/10, with home health services for usp/PT/OT from [facility]. No additional needs at this time.
--- NOTE | 2020-01-11 15:34 | NUR ---
DISCHARGE INSTRUCTIONS REVIEWED WITH PT AND FAMILY. QUESTIONS ANSWERED PT LEFT PER WHEEL CHAIR TO FRONT.
== END 2020-01-11 15:00 | disposition home or self-care (01) | DRG 393 ==
LOC: COL.ER 12:27 → SURG 17:21
PROVIDERS: Emergency Medicine; Physician Assistant; ADMIT Hospitalist
DX: K52.1 Toxic gastroenteritis and colitis (principal); I21.A1 Myocardial infarction type 2; N17.9 Acute kidney failure, unspecified; E86.0 Dehydration; I25.10 Atherosclerotic heart disease of native coronary artery without angina pectoris; I10 Essential (primary) hypertension; E78.5 Hyperlipidemia, unspecified; K21.9 Gastro-esophageal reflux disease without esophagitis; I95.9 Hypotension, unspecified; D69.6 Thrombocytopenia, unspecified; T50.995A Adverse effect of other drugs, medicaments and biological substances, initial encounter; R77.8 Other specified abnormalities of plasma proteins; Z95.5 Presence of coronary angioplasty implant and graft; Z90.5 Acquired absence of kidney; Z85.528 Personal history of other malignant neoplasm of kidney
CPT/HCPCS: 99223-AI; 99232-AI; 99239; J1644; J1720; J2405; J3010; J7030; J7120

== ENCOUNTER → 2020-05-30 | Outpatient (CLI) | payer MEDICARE, BC ==
[~2020-05-30] MED LIST changes: +ACTOS30 MG PO; +ALDACTONE 25MG25 M1 PO; +AMOXICILLIN 8751 TAB PO; +CALMOSEPTINE OI71 GM TP; +DECADRON 4MG TAB4 MG PO; +K-TAB20 PO; +MAG-OX 400400 MG/TAB PO; +MONODOX100 PO; +NYSTATIN CREAM15 GM TP; +PRAVACHOL10 MG PO; +SUTENT37.5 MG PO; +ZOLOFT 100MG100 MG PO
== END ==
LOC: COL.RAD 13:00
DX: H53.9 Unspecified visual disturbance (principal); R51.9 Headache, unspecified; R27.0 Ataxia, unspecified

== ENCOUNTER → 2020-06-07 | Outpatient (CLI) | payer MEDICARE, BC | LOC: COL.RAD 07:03 | DX: G93.9 Disorder of brain, unspecified (principal); Z85.528 Personal history of other malignant neoplasm of kidney | CPT/HCPCS: A9585 ==

== ENCOUNTER 2020-06-09 15:43 | Inpatient (IN) | payer MEDICARE, BC ==
[~2020-06-09] VITALS: Ht 162.6 cm; Wt 75.0 kg
[2020-06-09] VITALS (22 sets, daily range): BP systolic 125; BP diastolic 64; PULSE 87; TEMP 98.2; O2SAT 94–99
[~2020-06-09 15:43] MED LIST changes: -ACTOS30 MG PO; -ALDACTONE 25MG25 M1 PO; -AMOXICILLIN 8751 TAB PO; -CALMOSEPTINE OI71 GM TP; -DECADRON 4MG TAB4 MG PO; -K-TAB20 PO; -MAG-OX 400400 MG/TAB PO; -MONODOX100 PO
[2020-06-09 16:47] LABS: BASO # 0.1 (0.0-0.2); EOS # 0.3 (0.0-0.7); EOS % 3.4 % (0-4.0); GRAN # 4.3 (1.4-6.5); GRAN % 59.1 % (42.2-75.2); HEMATOCRIT 41.7 % (37.0-47.0); HEMOGLOBIN 13.5 g/dl (12.5-16.0); LYMPH # 1.8 (1.2-3.4); MEAN CELL VOLUME 85 fl (80.0-100.0); MEAN CORPUSCULAR HEMOGLOBIN 28 pg (27.0-31.0); MEAN CORPUSCULAR HGB CONC 32 g/dl (33.0-37.0); MONO # 0.8 (0.1-0.6); MONO % 11.5 % (1.7-9.3); PLATELET COUNT 238 K/mm3 (130-400); RED BLOOD COUNT 4.91 M/mm3 (4.10-5.30)
[2020-06-09 16:53] LABS: ALBUMIN 4.7 gm/dL (3.5-5.0); BILIRUBIN,TOTAL 0.9 mg/dL (0.0-1.0); CREATININE, serum 4.09 (0.52-1.25); TOTAL PROTEIN 8.7 gm/dL (6.4-8.2)
[2020-06-09 16:54] LABS: INR 1.3 (0.8-3.0); PROTHROMBIN TIME 14.2 SECONDS (9.7-12.8)
[2020-06-09 16:57] LABS: POTASSIUM 2.8 mmol/L (3.4-5.0)
[2020-06-09 17:07] LABS: TROPONIN-I 0.056 ng/mL (0.000-0.035)
[2020-06-09 17:08] LABS: COLLECTION METHOD CATHETER
[2020-06-09 17:10] LABS: AMORPHOUS CRYSTAL Present /uL; MUCOUS Present /lpf; PH 5 (5-8); SQUAMOUS EPITHELIAL 0-2 /hpf; URINE APPEARANCE Cloudy; URINE BACTERIA Rare /hpf; URINE BILIRUBIN Positive (NEGATIVE); URINE BLOOD Negative (NEGATIVE); URINE COLOR Amber; URINE GLUCOSE Negative (NEGATIVE); URINE KETONE Negative (NEGATIVE); URINE LEUKOCYTE ESTERASE Negative (NEGATIVE); URINE NITRATE Negative (NEGATIVE); URINE PROTEIN(semi-quant) 3+ (NEGATIVE)
[2020-06-09] MEDS ORDERED: NORCO 325 MG-51 TAB PO (18:03)
[2020-06-09] MEDS ORDERED: ZEBETA 5MG5 MG PO (18:04)
[2020-06-09] MEDS ORDERED: K-TAB20 PO (18:04)
[2020-06-09] MEDS ORDERED: DECADRON 4MG TAB4 MG PO (18:05)
[2020-06-09] MEDS ORDERED: NORVASC 10MG10 MG PO (18:05)
[2020-06-09] MEDS ORDERED: HCTZ12.5TAB PO (18:05)
[2020-06-09] MEDS ORDERED: BENICAR40 MG PO (18:06)
[2020-06-09] MEDS ORDERED: PRAVACHOL 40MG40 MG PO (19:11)
[2020-06-09] MEDS ORDERED: CALMOSEPTINE OI71 GM TP (19:12)
[2020-06-09 19:59] LABS: MAGNESIUM 1.5 mg/dL (1.6-2.3)
--- NOTE | 2020-06-09 21:50 | NUR ---
Received report from ED nurse
--- NOTE | 2020-06-09 22:00 | NUR ---
Patient arrives to ICU room 2 via ED stretcher. Patient is alert and pleasantly confused. All intial vitals within normal limits; patient on room air, tolerating well, O2 96%. Patient denies any pain or discomfort. No skin issues noted. Patient arrives with a saline locked 22G peripheral IV to the left wrist. No fluids infusing at this time. Patient belongins include a purse and wallet with $7 dial; a cell phone and splicing supervisor, street clothes, and upper and lower dentures. No jewelry, hearing aids, or glasses found on patient or in personal belongings. Per sonAlfonso, patient ambulates with a walker at home. No further needs noted. Carmen, hospitalist, aware of patient's arrival. Bed in lowest position, call light within reach, all alarms on.
[2020-06-09 23:41] LABS: CALCIUM 10.8 mg/dL (8.4-10.2); CREATININE, serum 3.04 (0.52-1.25); POTASSIUM 3.9 mmol/L (3.4-5.0)
[2020-06-09 23:55] LABS: TROPONIN-I 6 HR POST INITIAL 0.064 ng/mL (0.000-0.034)
[2020-06-10] VITALS (705 sets, daily range): BP systolic 108–138; BP diastolic 50–76; PULSE 77–96; TEMP 97.9–98.6; O2SAT 72–100
[2020-06-10 05:30] LABS: BASO % 0.2 % (0.0-2.0); EOS % 0.2 % (0-4.0); GRAN # 4.8 (1.4-6.5); GRAN % 84.7 % (42.2-75.2); HEMOGLOBIN 11.9 g/dl (12.5-16.0); LYMPH # 0.7 (1.2-3.4); LYMPH % 12.1 % (20.0-51.0); MEAN CELL VOLUME 87 fl (80.0-100.0); MEAN CORPUSCULAR HEMOGLOBIN 28 pg (27.0-31.0); MEAN CORPUSCULAR HGB CONC 32 g/dl (33.0-37.0); MEAN PLATELET VOLUME 10.4 fl (7.4-10.4); MONO # 0.1 (0.1-0.6); MONO % 1.6 % (1.7-9.3); PLATELET COUNT 194 K/mm3 (130-400); RED BLOOD COUNT 4.25 M/mm3 (4.10-5.30); REDCELL DISTRIBUTION WIDTH-CV 15.1 % (11.5-14.5)
[2020-06-10 05:35] LABS: HEMATOCRIT 36.8 % (37.0-47.0)
[2020-06-10 05:41] LABS: CALCIUM 10.5 mg/dL (8.4-10.2); CREATININE, serum 2.51 (0.52-1.25); MAGNESIUM 2.2 mg/dL (1.6-2.3); POTASSIUM 3.7 mmol/L (3.4-5.0)
--- NOTE | 2020-06-10 06:30 | NUR ---
Updated patient's son, Alfonso, via phone. All questions answered. Patient's mentation has substantially improved throughout shift. Patient is still somewhat clouded, although answers location, month, year, current president, and birthday correctly. Patient denies any pain or discomfort. All vitals within normal limits. Patient placed on 2L via nasal cannula while sleeping due to oxygen saturation dipping 87-88%. No further needs noted at this time.
[2020-06-10 11:12] LABS: TRICYCLIC ANTIDEPRESS URINE NEGATIVE
--- NOTE | 2020-06-10 15:23 | NUR ---
SW contacted [facility]ir[facility] [phone] to complete intake. Son states that patient currently lives alone in [place] but he is currently setting up a place for her to stay at his home. He states that she does not use a walker or a cane but feels as though she may need to be set up with one. PT has done evaluation (please see PT note for evaluation) Son states that patient did not receive any HH services and was previous independent with ADLs, PCP is Dr. Aleman, and pharmacy he states [facility]. Son provides that patient was in the process of completing documentation to appoint DPOA-HC, but has not yet been completed. Plan for patient up on discharge is to go to son's home upon DC. SW will continue to follow.
--- NOTE | 2020-06-10 16:49 | NUR ---
Patient to room 306 from ICU. Alert and partially confused. VSS. IV CDI, fluids infusing. Denies pain and discomfort. No reported SOB. Droplet/contact precautions in place. Call light within reach. Bed alarm on
--- NOTE | 2020-06-10 17:11 | NUR ---
Patient oriented to location, room and call light. VSS. SCD's bilateral legs. Cell phone and eyeglasses at the bedside. Call light within reach. Bed alarm on and baby monitor on
--- NOTE | 2020-06-10 18:50 | NUR ---
Received report from Nasrin. Patient awake in bed. No needs at this time.
--- NOTE | 2020-06-10 20:45 | NUR ---
Assesment done. Patient is alert and partially oriented. She is on room air. She denies pain. With SCD on bilateral lower extremities. Her son, Alfonso, called and give him an update regarding patient. Her lungs are clear. Repositioned patient in bed. Changed patient's gown to yellow. Bed alarm on.
[2020-06-11 03:00] VITALS: BP 158/67; PULSE 73; TEMP 98.6
--- NOTE | 2020-06-11 06:13 | NUR ---
Patient's SPO2 drop to 85% on room air. Placed O2 at 2lpm via NC, SPO2 on recheck at 93%. She wasn't able to sleep last night. She is confused and she states that there is a lady outside her door looking at her wherein there's no one outside. Reoriented patient.
--- NOTE | 2020-06-11 07:13 | NUR ---
Patient resting in bed at this time. NS running as ordered. Patient having hallucinations of a man across the landeros watching her. Reoriented. Will continue to monitor. Patient does not C/O any pain, discomfort, or needs at this time. Call light within reach. Fall percautions in place.
[2020-06-11 08:38] VITALS: BP 146/48; PULSE 76; TEMP 99
[2020-06-11 09:08] LABS: HEMOGLOBIN 11.8 g/dl (12.5-16.0); MEAN CELL VOLUME 84 fl (80.0-100.0); MEAN CORPUSCULAR HEMOGLOBIN 28 pg (27.0-31.0); MEAN CORPUSCULAR HGB CONC 33 g/dl (33.0-37.0); MEAN PLATELET VOLUME 10.6 fl (7.4-10.4); PLATELET COUNT 197 K/mm3 (130-400); RED BLOOD COUNT 4.27 M/mm3 (4.10-5.30); REDCELL DISTRIBUTION WIDTH-CV 15.3 % (11.5-14.5)
[2020-06-11 09:18] LABS: HEMATOCRIT 35.8 % (37.0-47.0)
[2020-06-11 09:19] LABS: CALCIUM 10.5 mg/dL (8.4-10.2); CREATININE, serum 1.16 (0.52-1.25); POTASSIUM 3.7 mmol/L (3.4-5.0)
[2020-06-11 10:14] LABS: BAND 3 % (0-10); LYMPHOCYTE 6 % (20.0-51.0); NEUTROPHILS 86 % (42.0-75.2); PLATELET ESTIMATE NORMAL (NORMAL)
--- NOTE | 2020-06-11 11:21 | NUR ---
Patient given K+ per protocol. PT working with patient at this time. Will continue to monitor. Call light within reach. Fall percautions in place.
[2020-06-11 12:31] VITALS: BP 156/93; PULSE 66; TEMP 98.6
--- NOTE | 2020-06-11 13:01 | NUR ---
Patient SATS fell to 80. Placed 2L of O2 on patient SATS kim to 93%. Benito notified. Will continue to monitor. Call light within reach. Fall percautions in place
--- NOTE | 2020-06-11 14:33 | NUR ---
The patient had a Respiratory Virus Panel and it was positive for SARS COv2. SW contacted the patient's PCP to inquire if a Covid-19 test was administered prior to admission. The PCP did not have a current Covid-19 test on file. The previous tests on were negative. OT is recommending post acute rehab. Referral sent to [facility]. SW contacted Melania from [facility] to disuss referral. EAMON collaborated the above information with medical floor SW.
--- NOTE | 2020-06-11 16:24 | NUR ---
PT worked with patient. Moved her from her bed to her chair. Patient had taken O2 off and was Sating at 79%. Patient placed of 3L and is now Sating at 92%. Patient is currently resting in her chair. Continues to be confused. Reorientation unsuccessful. Patient to possible transfer to for radiation treatment. Will continue to monitor. Call light within reach. Fall percautions in place.
--- NOTE | 2020-06-11 16:29 | NUR ---
The patient's son, Alfonso, approached EAMON about being interested in the patient completing a DPOA-HC while here. The patient is COVID-19 positive. EAMON provided the patient's RN with the DPOA-HC form. The patient's RN and aide witnessed the patient's signature. She designated her son, Alfonso. EAMON provided Alfonso with some copies of the DPOA-HC. EAMON placed a copy in the patient's chart.
[2020-06-11 16:51] VITALS: BP 145/85; PULSE 75; TEMP 99.2
--- NOTE | 2020-06-11 19:13 | NUR ---
Bedside report given to ALMA Pinto. Patient continues to be confused, reorientaion unsuccessful. Patient finished her first round of remdesivir at 1800. Patient denies any pain, discomfort, or further needs at this time. O2 running at 3L via nasal cannula. Call light within reach. Fall percautions in place.
[2020-06-11 21:19] VITALS: BP 154/83; PULSE 73; TEMP 98
[2020-06-11 23:31] VITALS: BP 155/66; PULSE 68; TEMP 97.4
--- NOTE | 2020-06-11 23:52 | NUR ---
2029- Pt found by DIGITAL PERFORMANCE ANALYST to have pulled out iv, and had BM all over self and floor. Pt cleaned up with shower, full linen and gown change along w tele patch, leads. Pt confused alert and ox3. Having some hallcinations, seeing a litte girl in room. 02 found to be off as well when entering room. PM meds given. Bed in low postion, bed alarm on along w monitor.
[2020-06-12 03:13] VITALS: BP 138/61; PULSE 70; TEMP 98.5
--- NOTE | 2020-06-12 05:29 | NUR ---
PT ALERT AND AWAKE THIS MORNING. REMAINS CONFUSED ASKING ABOUT HOW MANY BATH AND BEDROOM ARE IN THIS HOUSE. WANTS TO GET UP AND HELP SON GET READY FOR WORK. REORIENTATED, O2 WAS OFF WHEN ENTERING ROOM. AM MEDS GIVEN. NEEDS MET.
[2020-06-12 07:08] LABS: GRAN # 5.7 (1.4-6.5); GRAN % 85.5 % (42.2-75.2); HEMOGLOBIN 11.5 g/dl (12.5-16.0); LYMPH # 0.4 (1.2-3.4); LYMPH % 6.5 % (20.0-51.0); MEAN CELL VOLUME 85 fl (80.0-100.0); MEAN CORPUSCULAR HEMOGLOBIN 28 pg (27.0-31.0); MEAN CORPUSCULAR HGB CONC 33 g/dl (33.0-37.0); MEAN PLATELET VOLUME 10.6 fl (7.4-10.4); MONO # 0.5 (0.1-0.6); MONO % 6.8 % (1.7-9.3); PLATELET COUNT 191 K/mm3 (130-400); RED BLOOD COUNT 4.11 M/mm3 (4.10-5.30); REDCELL DISTRIBUTION WIDTH-CV 15.6 % (11.5-14.5)
[2020-06-12 07:11] LABS: HEMATOCRIT 35.1 % (37.0-47.0)
[2020-06-12 07:23] LABS: CALCIUM 10.7 mg/dL (8.4-10.2); CREATININE, serum 0.98 (0.52-1.25); POTASSIUM 3.4 mmol/L (3.4-5.0)
--- NOTE | 2020-06-12 08:50 | NUR ---
Shift assessment complete. Alert, oriented to self. Occasional hallucinations, believes she is in a school. NC on at 3 lpm O2. Lungs CTA. Heart RRR. Follows commands, PERRLA. INT to right FA w/o s/s complication. Pt up to restroom and back to chair for breakfast w/OT. Chair alarm on and video monitor in place.
[2020-06-12 09:00] VITALS: BP 142/65; PULSE 72; TEMP 98
[2020-06-12 12:12] VITALS: BP 160/61; PULSE 65; TEMP 98
[2020-06-12 16:44] VITALS: BP 154/67; PULSE 73; TEMP 97.8
--- NOTE | 2020-06-12 18:34 | NUR ---
Uneventful day. Up in chair since this AM. Continues to have occasional hallucinations but remains mostly oriented. O2 at 2 lpm NC w/ sats mid 90s. Report given to shift superintendent caustic cresylate ALMA Major.
[2020-06-12 19:01] VITALS: BP 169/68; PULSE 64; TEMP 98.5
--- NOTE | 2020-06-12 21:30 | NUR ---
PT ALERT AND OX3. CONFUSED ABOUT WHERE SHE IS AT THIS EVENING AND HAVING SOME HALLCINATIONS, ASKING IF I SAW THE MAN WHO COMMITED SUIDIDE. SETTING IN CHAIR W ALARM ON. ASSESMENT DONE. UP TO BR W NURSE ASST TO BR W MED BM. AVELAR CATH IN PLACE TO DD. IV INT TO LEFT WRIST FLUSHED. DENIES PAIN. PM MEDS GIVEN. TUCKED INTO BED. ALARM AND MONITOR ON PT. NEEDS MET.
[2020-06-12 23:16] VITALS: BP 162/96; PULSE 67; TEMP 98.2
[2020-06-13 04:10] VITALS: BP 161/79; PULSE 88; TEMP 98.5
--- NOTE | 2020-06-13 05:34 | NUR ---
UP MOST OF THE NIGHT. ORIENTATED FOR THE MOST PART STILL HAS SOME HALLCINATIONS. HAD A BETTER NIGHT OVERALL TONIGHT HOWEVER. NEEDS MET.
--- NOTE | 2020-06-13 05:37 | NUR ---
REPORTED TRENDING UP B/P. SOME HOME MEDS ON HOLD. DEE DEE LOOKING AT MED REC AND WILL START BP MEDS THIS AM.
[2020-06-13 07:37] VITALS: BP 189/74; PULSE 63; TEMP 98
--- NOTE | 2020-06-13 07:45 | NUR ---
PT LAYING IN BED AT THIS TIME. AID IN THE ROOM WITH PATIENT. DENIES ANY PAIN AT THIS TIME. STUDENT NURSE, HENRI WILL BE ASSISTING WITH CARES FOR THE PATIENT TODAY. CALL LIGHT WITHIN REACH, PT BED ALARM ON. NO FURTHER CONCERNS.
--- NOTE | 2020-06-13 09:28 | NUR ---
gaming cage worker, Rosa, notified EAMON that the patient's family is wanting the patient to go to [facility] upon discharge. The family has been in contact with her PCP, Dr. Aleman, and Dr. Aleman would also like for her to come over to [facility]. EAMON contacted the patient's son, Alfonso, and confirmed this. EAMON contacted and faxed a referral to Jessy at [facility]. Awaiting screen.
[2020-06-13 10:33] LABS: ALBUMIN 3.4 gm/dL (3.5-5.0); BILIRUBIN UNCONJUGATED 0.1 mg/dL (0.0-1.1); BILIRUBIN,DIRECT 0.2 mg/dL (0.0-0.4); BILIRUBIN,TOTAL 0.3 mg/dL (0.0-1.0); TOTAL PROTEIN 6.4 gm/dL (6.4-8.2)
--- NOTE | 2020-06-13 12:19 | NUR ---
DR. MCFADDEN AT BEDSIDE. WOULD LIKE TO CONTINUE TITRATING O2 DOWN. PT SHOULD DISCHARGE PENDING PLACEMENT TOMORROW. CALL LIGHT WITHIN REACH. PT IN THE RECLINER WITH CAMERA AND CHAIR ALARM ON. NO FURTHER CONCERNS AT THIS TIME. DR. MCFADDEN TO CONTACT ZAC PT'S SON.
[2020-06-13 12:41] VITALS: BP 173/71; PULSE 63; TEMP 98.4
--- NOTE | 2020-06-13 14:08 | NUR ---
Jessy, at [facility], reports that they would not be able to take the patient until she is 10 days out from her positive panel for COVID-19. Her panel was on 06/10. SW updated the hospitalist. SW contacted and updated the patient's son, Alfonso. SW discussed another options for rehab that can take when positive. Alfonso plans to talk to his about the options and will let SW know what they decide.
[2020-06-13 16:12] VITALS: BP 159/72; PULSE 63; TEMP 97.5
--- NOTE | 2020-06-13 18:41 | NUR ---
Pt rested in the chair this afternoon, she was A/O when in the room but appears to be hallucinating. Asking the WIRE THREADER about the baby in the bed and talking about the books on the shelf. Has not been impulsive and is cooperative with cares. Shasha NOLASCO. Chair alarm in place.
[2020-06-13 18:58] VITALS: BP 163/73; PULSE 61; TEMP 97.8
--- NOTE | 2020-06-13 22:03 | NUR ---
Patient laying in bed upon enter the room. Patient alert and oriented. Patient currently on oxygen 2L via NC. Breathing even and unlabored. No actue respiratory distress noted. Patient reports SOB/dyspnea when she gets up and ambulating. All scheduled meds given per MAR. Patient took medications without difficulty. Pulliam catheter in place and draining clear yellow urine. Pulliam care provied. Call light within reach. Bed-alarms on. Patient denies any needs at this time.
[2020-06-14 00:46] VITALS: BP 166/66; PULSE 63; TEMP 98.5
[2020-06-14 04:05] VITALS: BP 160/68; PULSE 60; TEMP 98.6
--- NOTE | 2020-06-14 05:48 | NUR ---
Patient slept well throughout the night. No halllucinations reported/noted throughout the night. A/Ox3 this morning. Call light within reach. Bed alarms on.
--- NOTE | 2020-06-14 07:02 | NUR ---
PT IS SLEEPING IN BED AT THIS TIME. WILL RETURN FOR ASSESSMENT. NO FURTHER CONCERNS. BED ALARM IS ON, CAMERA ON AND CALL LIGHT WITHIN REACH.
[2020-06-14 07:14] LABS: HEMATOCRIT 37.6 % (37.0-47.0); HEMOGLOBIN 12.4 g/dl (12.5-16.0); MEAN CELL VOLUME 84 fl (80.0-100.0); MEAN CORPUSCULAR HEMOGLOBIN 28 pg (27.0-31.0); MEAN CORPUSCULAR HGB CONC 33 g/dl (33.0-37.0); MEAN PLATELET VOLUME 10.7 fl (7.4-10.4); PLATELET COUNT 191 K/mm3 (130-400); RED BLOOD COUNT 4.46 M/mm3 (4.10-5.30); REDCELL DISTRIBUTION WIDTH-CV 14.9 % (11.5-14.5)
[2020-06-14 07:30] LABS: CALCIUM 10.1 mg/dL (8.4-10.2); CREATININE, serum 0.76 (0.52-1.25); POTASSIUM 3.4 mmol/L (3.4-5.0)
[2020-06-14 07:56] LABS: BAND 2 % (0-10); LYMPHOCYTE 5 % (20.0-51.0); METAMYELOCYTE 4 % (0-0); NEUTROPHILS 87 % (42.0-75.2); PLATELET ESTIMATE NORMAL (NORMAL)
[2020-06-14 07:57] LABS: TEAR DROP CELLS 1+
[2020-06-14 09:07] VITALS: BP 178/74; PULSE 94; TEMP 98.4
--- NOTE | 2020-06-14 09:33 | NUR ---
The patient's son, Alfonso, left SW a voicemail. He would like to try for IPR. EAMON consulted IPR Director, Evangelina. Evangelina reports that they would be able to accept the patient. EAMON updated the patient's son and the PA. The patient is to discharge today, 06/14, to [facility]. No additional needs at this time.
[2020-06-14] MEDS ORDERED: MONODOX100 PO (10:50)
--- NOTE | 2020-06-14 11:07 | NUR ---
PT DENIES NEEDS AT THIS TIME. PT WILL BE TRANSFERRED TO IPR STATUS. NO FURTHER CONCERNS AT THIS TIME. CALL LIGHT WITHIN REACH. BED ALARMS ON.
[2020-06-14 12:00] VITALS: BP 187/54; PULSE 59; TEMP 98.3
--- NOTE | 2020-06-14 12:15 | NUR ---
planning for patient discharge from acute and admission to Inpatient Rehab. Pt with unknown COVID status with positive test of 06-10-20. Full COVID isolation precautions will need to be in place until a minimum of 06-09-20 and pending continued clinical improvement of any COVID related symptomology. Mikayla Gr RN, Infection Prevention..
[2020-06-14 14:17] VITALS: BP 187/54; PULSE 59; TEMP 98.3
[2020-06-14 16:19] VITALS: BP 179/74; PULSE 61
== END 2020-06-14 16:30 | DRG 177 ==
LOC: COL.ER 15:43 → ICU 19:52 → MEDICAL 06-10 17:13
PROVIDERS: Family Medicine; Nurse Practitioner Family; Nurse Practitioner Primary Care; Physician Assistant; ADMIT Student in an Organized Health Care Education/Training Program
PROC: XW033E5 Introduction of Remdesivir Anti-infective into Peripheral Vein, Percutaneous Approach, New Technology Group 5 (ICD-10-PCS; principal; 2020-06-11)
DX: U07.1 COVID-19 (principal); G93.41 Metabolic encephalopathy; J12.82 Pneumonia due to coronavirus disease 2019; J96.01 Acute respiratory failure with hypoxia; C79.31 Secondary malignant neoplasm of brain; N17.9 Acute kidney failure, unspecified; K21.9 Gastro-esophageal reflux disease without esophagitis; I10 Essential (primary) hypertension; Z66 Do not resuscitate; I25.10 Atherosclerotic heart disease of native coronary artery without angina pectoris; R79.89 Other specified abnormal findings of blood chemistry; I95.9 Hypotension, unspecified; E87.6 Hypokalemia; E86.0 Dehydration; R82.81 Pyuria; E78.5 Hyperlipidemia, unspecified; R53.81 Other malaise; Z95.5 Presence of coronary angioplasty implant and graft; Z85.528 Personal history of other malignant neoplasm of kidney; Z90.711 Acquired absence of uterus with remaining cervical stump; Z79.82 Long term (current) use of aspirin; Z79.891 Long term (current) use of opiate analgesic
CPT/HCPCS: 99223-AI; 99232-AI; 99233-AI; 99239; A4314; A9585; J0696; J1644; J1650; J1720; J3475; J3480; J7030; J7050; J8540

== ENCOUNTER 2020-06-14 12:32 | Inpatient (IN) | payer MEDICARE, BC ==
[~2020-06-14] VITALS: Ht 162.6 cm; Wt 72.8 kg
[~2020-06-14 12:32] MED LIST changes: +CALMOSEPTINE OI71 GM TP; +DECADRON 4MG TAB4 MG PO; +K-TAB20 PO; +MONODOX100 PO
--- NOTE | 2020-06-14 19:05 | NUR ---
PT TRANSFERRED OVER FROM MEDICAL STATUS TO [facility] STATUS. PT IS A&O X4 AT THIS TIME. IS EATING AND DRINKING WELL BY HERSELF. AMBULATES WITH ASSISTANCE OF 1 AND HER WALKER. PT DENIES ANY PAIN. PT REMAINS IN ISOLATION PRECAUTIONS FOR SARS-COV-2.
[2020-06-14 19:45] VITALS: BP 148/78; PULSE 82; TEMP 98
--- NOTE | 2020-06-14 22:52 | NUR ---
1920- PT ASSESSMENT COMPLETE. PT IPR STATUS BUT IN ISOLATION FOR COVID. DENIES SOA, CHEST PAIN OR DIZZY. SETTING IN RECLINER. TO BR ETTA MONTALVO AND VALENTINO KRAMER. PT DENIES PAIN. POC DISCUSSED. TUCKED IN AND RESTING. CALL LIGHT WI REACH AND BED ALARM ON.
[2020-06-15 04:48] VITALS: BP 161/81; PULSE 56; TEMP 98
--- NOTE | 2020-06-15 05:39 | NUR ---
RESTED THROUGH OUT THE NIGHT WO INCIDENT.VOIDING OKAY SINCE VALENTINO KRAMER. NO HALLCINATION REPORTED BY PT OVERNIGHT. NEEDS MET
--- NOTE | 2020-06-15 10:33 | NUR ---
Patient has been very pleasant this morning and has done well working with PT/OT. Upon assessment prior to admiistering medications, it was noted that there was a large dark blue/purple bruise on the lower right abdomen r/t heparin injection. There was also active bleeding from the site of injection. The site was covered with guaze and tape, and heparin was held.
--- NOTE | 2020-06-15 15:31 | NUR ---
Beef Grinder contacted patient's son, Alfonso (ph#[phone]) to complete initial intake as patient is new to [facility]. Patient was living alone in [place] prior to hospitalization and sees Dr. Aleman for primary care. Patient obtains medications from [facility] with no difficulties. Patient normally does not use any DME. Patient has Advance Directives with designate patient's son Alfonos. Alfonso advised that he has been working with EAMON at Dr. Aleman's office, [facility] to get patient set up for outpatient radiation. Alfonso would prefer a provider in [place] for this. EAMON contacted Philippe to leave a message to assist with referral.
[2020-06-15 15:43] VITALS: BP 176/65; PULSE 58; TEMP 98.3
--- NOTE | 2020-06-15 18:33 | NUR ---
PT HAD UNEVENTFUL DAY. PT/OT/ST WORKED WITH PATIENT, AND SHE HAS HAD NO COMPLAINTS. NO FURTHER CONCERN WILL REPORT TO GEOTHERMAL OPERATIONS ENGINEER RN.
[2020-06-15 20:04] VITALS: BP 161/67; PULSE 58; TEMP 97.5
--- NOTE | 2020-06-15 20:40 | NUR ---
Patient assessed at this time. Alert and oriented x 4, and able to make needs known. Denies having pain and discomfort at this time. Peripheral INT to right forearm. Site without redness, warmth, swelling, and pain. Denies SOB and dyspnea. On room air. LS CTA in upper lobes, diminished in lower. Respirations even and unlabored. HRR. Capillary refill less than 3 seconds. Non-tenting skin turgor. BSAx4. Abdomen soft and non-tender. Reports diarrhea. Redness to coccyx, blanchable. No edema. Voices no questions, needs, or concerns at this time. High fall risk precautions in place. Resting in bed with call light within reach.
[2020-06-16 04:16] VITALS: BP 160/73; PULSE 62; TEMP 97.9
--- NOTE | 2020-06-16 06:07 | NUR ---
Patient has been resting in bed with call light within reach. Has denied having pain and discomfort this shift. High fall risk precuations in place. Has been calling for assistance with going to the bathroom. Gait steady. Voices no questions, needs, or concerns at this time. Continues on contact/droplet precautions per protocol.
[2020-06-16 07:45] VITALS: BP 158/59; PULSE 65; TEMP 97.8
--- NOTE | 2020-06-16 08:00 | NUR ---
Patient laying in bed, upon entry patient informed the nurse that she needed to use the bathroom. Standby assist. Patient A&Ox4. VSS. IV CDI. Denies pain, discomfort and SOB. Covid precautions in place. Patient sitting in the recliner and working on eatting breakfast. Chair alarm on. Call light within reach
[2020-06-16 16:41] VITALS: BP 154/65; PULSE 59; TEMP 98.6
--- NOTE | 2020-06-16 17:21 | NUR ---
Patient had an uneventful day. A&Ox3. VSS, no reported SOB. IV CDI. Contact droplet precautions in place. Patient worked with therapy today and tolerated well. No further needs expressed from the patient. Call light within reach
--- NOTE | 2020-06-16 19:44 | NUR ---
Sitting up in recliner, fall precautions in use, call francisco w/i each, conitnues on contact/droplet precautions for COVID, no shob noted, denies pain, updated on plan of care.
[2020-06-17 05:43] VITALS: BP 151/55; PULSE 57; TEMP 97.6
--- NOTE | 2020-06-17 06:20 | NUR ---
resting quietly, no c/o throughout night, denies pain, tolerating diet, good appetite, snacked throughout night, contact/droplet precautions continue, updated on plan of care.
--- NOTE | 2020-06-17 07:00 | NUR ---
Report received from ALMA Major. PT in bed resting, denies needs, nightshift brought in breakfast, will continue to monitor.
--- NOTE | 2020-06-17 08:32 | NUR ---
Assessment charted. Pt states she was up almost every hour overnight to void but otherwise feeling well. Has had some diarhea but denies frequent trips. Denies pain. Alert and oriented. INT to RFA. Feeling well and happy to just rest today without IPR therapy. WIll continue to monitor.
[2020-06-17 17:08] VITALS: BP 156/72; PULSE 65; TEMP 98.6
--- NOTE | 2020-06-17 18:30 | NUR ---
Pt has done wlel over shift. Resting in chair for meals or in bed for naps today. States she is still getting up often to void but otherwise denies needs. Will give bedside shift report to nightshift nurse who will resume care.
--- NOTE | 2020-06-17 19:32 | NUR ---
Awake, alert, oriented x 4, able to verbalize all needs, ambulating in room w/ steady gait with sba, tolerating diet with good appetite, no c/o at this time, updated on plan of care.
--- NOTE | 2020-06-18 05:59 | NUR ---
Resting quietly, denies pain, uneventful night, call francisco w/i reach.
[2020-06-18 06:14] VITALS: BP 152/88; PULSE 62; TEMP 98.4
[2020-06-18 07:53] LABS: HEMATOCRIT 42.7 % (37.0-47.0); HEMOGLOBIN 14.3 g/dl (12.5-16.0); MEAN CELL VOLUME 83 fl (80.0-100.0); MEAN CORPUSCULAR HEMOGLOBIN 28 pg (27.0-31.0); MEAN CORPUSCULAR HGB CONC 34 g/dl (33.0-37.0); MEAN PLATELET VOLUME 10.9 fl (7.4-10.4); PLATELET COUNT 277 K/mm3 (130-400); RED BLOOD COUNT 5.17 M/mm3 (4.10-5.30); REDCELL DISTRIBUTION WIDTH-CV 15.1 % (11.5-14.5)
[2020-06-18 08:05] LABS: CALCIUM 10.5 mg/dL (8.4-10.2); CREATININE, serum 0.9 (0.52-1.25); MAGNESIUM 1.6 mg/dL (1.6-2.3); POTASSIUM 3.8 mmol/L (3.4-5.0)
[2020-06-18 09:17] LABS: ANISOCYTOSIS 1+; BAND 3 % (0-10); LYMPHOCYTE 6 % (20.0-51.0); NEUTROPHILS 85 % (42.0-75.2); PLATELET ESTIMATE NORMAL (NORMAL)
--- NOTE | 2020-06-18 10:43 | NUR ---
CALLED SON; ZAC HAMM TO DISCUSS PT'S APPOINTMENT WITH [facility]. ZAC STATES "WE DON'T WANT TO HAVE THE APPOINTMENT WITH , WE WANT TO GET IN AT [facility]" THIS RN VERIFIED, THEY ARE NOT MAKING AN APPOINTMENT WITH , AND WILL TALK MORE WITH SOCIAL WORK REGARDING THE APPOINTMENT FOR TREATMENT OF THE BRAIN TUMOR. CALLED LEIDY WITH SOCIAL WORK TO DISCUSS THIS, AND SHE WAS UNAVAILABLE. WILL CONTINUE TO MONITOR AND ASSIST WE CAN. NO FURTHER CONCERNS AT THIS TIME. PT/OT/ST WORKING WITH PATIENT TOLERATED FOR IPR.
--- NOTE | 2020-06-18 11:40 | NUR ---
SOCIAL WORK RETURNED A CALL AND STATED THAT THEY DID PUT IN A REFERRAL TO NO JUNIOR. CONTACTED ZAC TO LET HIM KNOW THE REFERRAL HAD BEEN MADE AND TO EXPECT THE APPOINTMENT TO BE MADE SOON.
--- NOTE | 2020-06-18 13:14 | NUR ---
Saniya from speech therapy notified this student nurse that Genaro from physical therapy has approved the patient to become independent in her room. The patient is being instructed by therapy that she does not need to push her call button for assistance to the bathroom unless she feels unsafe to do so.
--- NOTE | 2020-06-18 13:32 | NUR ---
Admission QIM scores were reviewed by the team. Code of 4 chosen for toilet hygiene was determined by team discussion to be the most usual performance for this patient during the assessment period. Code of 4 chosen for toileting transfers was determined by team discussion to be the most usual performance for this patient during the assessment period.--Evangelina Alvarenga,
--- NOTE | 2020-06-18 16:33 | NUR ---
Power Line Lineman collaborated with EAMON Paez at [facility] who advised a referral would need to be faxed to Dr. Anderson at [facility] at fax#[phone]. EAMON faxed referral then followed up at [facility] and was advised the referral needs to be faxed to fax#[phone]. EAMON faxed and will follow up tomorrow as their office is now closed. EAMON collaborated with HANNAH Hutchinson Director who advised patient will discharge Thursday with a home exercise program.
[2020-06-18 17:00] VITALS: BP 153/66; PULSE 58; TEMP 97.6
--- NOTE | 2020-06-18 18:45 | NUR ---
Bedside report given to Moriah Petersen RN. The are no current concerns.
[2020-06-19 05:10] VITALS: BP 138/54; PULSE 64; TEMP 98.4
--- NOTE | 2020-06-19 09:16 | NUR ---
PT HAS BEEN INDEPENDENT IN HER ROOM. ISOLATION HAS BEEN REMOVED OF TODAY. PT WILL TRANSFER TO ROOM 340. NO FURTHER CONCERNS AT THIS TIME. REPORT WILL BE GIVEN TO ALMA ARSHAD IN IPR.
--- NOTE | 2020-06-19 10:04 | NUR ---
PT IS DOING PHYSICAL THERAPY WITH LARISAS STEPHEN AT THIS TIME. ZAFAR WILL WALK HER OVER TO [facility] ROOM 340. NO OTHER CONCERNS AT THIS TIME. REPORT GIVEN TO ALMA ARSHAD.
--- NOTE | 2020-06-19 12:24 | NUR ---
Bulker received a message from Ana Lilia at Dr. Anderson's office who advised they have received the referral and will contact patient and patient's son, Alfonso to schedule appointments.
[2020-06-19 15:47] VITALS: BP 180/63; PULSE 59; TEMP 98.5
[2020-06-19 16:33] VITALS: BP 162/70
--- NOTE | 2020-06-19 18:12 | NUR ---
PT WAS TRANSFERRED OVER FROM COVID ISOLATION TO ROOM 340 BY PT THIS AM. PT HAS DENIED ANY CONCERNS OR ISSUES THIS SHIFT. SOME ZINC OXIDE OINTMENT PLACED AROUND RECTUM FOR IRRITAION AND REDNESS. SKIN UNDER AUDI BREASTS AND PANUS LOOK NON IRRITATED, CDI.
--- NOTE | 2020-06-19 23:15 | NUR ---
2100- ASSESSMENT COMPLETE. ALERT AND OX 3. DENIES SOA, CHEST PAIN OR ANY DISCOMFORT. ANTCIPATES DC TOMORROW. PLAN OF CARE DISCUSSED. PM MEDS GIVEN. CALL LIGHT WI REACH. BED IN LOW POSITION. NEEDS MET
[2020-06-20 04:31] VITALS: BP 137/88; PULSE 66; TEMP 98.3
--- NOTE | 2020-06-20 05:32 | NUR ---
rested through the night without incident. needs met.
--- NOTE | 2020-06-20 09:26 | NUR ---
Patient working with PT at this time. Will continue monitor.
--- NOTE | 2020-06-20 11:21 | NUR ---
Sales Management Trainee contacted Imaging Services to request images and MRI results be clouded to [facility] with attention to Dr. Anderson's office. SW met with patient to check in before discharge home, which will be today. Patient states she is ready to get home. SW presented and reviewed IM form with patient who verbalized understanding and provided signature. SW placed form in chart and provided copy to patient. No additional needs identified at this time.
--- NOTE | 2020-06-20 13:50 | NUR ---
INT DISCONTINUED TO RIGHT FOREARM, WITH PATIENT TOLERATING WELL AND CATHETER INTACT.
--- NOTE | 2020-06-20 14:37 | NUR ---
Patient resting in recliner, call light in reach and chair alarm set. She will be discharging home this afternoon once her son gets off work. Discharge appointments have been made. Denies any questions at this time.
--- NOTE | 2020-06-20 15:13 | NUR ---
Patient Health Summary, Discharge Summary, and Home Meds printed and reviewed with patient and son. Stressed importance of follow up appointments. Belongings gathered by ALMA/Jacki including phone, dam attendant, reading glasses, purse and misc. items. Patient transported via wheelchair by RN/Jacki and seatbelted for ride home with son, Alfonso. Patient and son denied any questions.
--- NOTE | 2020-06-21 13:30 | NUR ---
Discharge QIM scores were reviewed by the team. Code of 6 chosen for eating was determined by team discussion to be the most usual performance for this patient during the assessment period. Code of 6 chosen for shower/bathe self was determined by team discussion to be the most usual performance for this patient during the assessment period.--Evangelina Alvarenga, PD
== END 2020-06-20 15:15 | disposition home or self-care (01) | DRG 947 ==
LOC: MEDICAL 16:45
PROVIDERS: ADMIT Internal Medicine
PROC: XW033E5 Introduction of Remdesivir Anti-infective into Peripheral Vein, Percutaneous Approach, New Technology Group 5 (ICD-10-PCS; principal; 2020-06-14)
DX: R53.81 Other malaise (principal); G93.41 Metabolic encephalopathy; U07.1 COVID-19; J12.82 Pneumonia due to coronavirus disease 2019; J96.01 Acute respiratory failure with hypoxia; C79.31 Secondary malignant neoplasm of brain; N17.9 Acute kidney failure, unspecified; I10 Essential (primary) hypertension; I25.10 Atherosclerotic heart disease of native coronary artery without angina pectoris; Z66 Do not resuscitate; K21.9 Gastro-esophageal reflux disease without esophagitis; R79.89 Other specified abnormal findings of blood chemistry; E87.6 Hypokalemia; E78.5 Hyperlipidemia, unspecified; R53.1 Weakness; I95.9 Hypotension, unspecified; E86.0 Dehydration; R82.81 Pyuria; G93.9 Disorder of brain, unspecified; Z79.82 Long term (current) use of aspirin; Z79.891 Long term (current) use of opiate analgesic; Z95.1 Presence of aortocoronary bypass graft; Z85.528 Personal history of other malignant neoplasm of kidney; Z95.5 Presence of coronary angioplasty implant and graft; Z90.711 Acquired absence of uterus with remaining cervical stump
CPT/HCPCS: 99223-AI; 99232-AI; 99239; J1644; J1650; J8540

== ENCOUNTER 2020-07-25 16:14 | Emergency (ER) | payer MEDICARE, BC ==
[~2020-07-25] VITALS: Ht 152.4 cm; Wt 72.7 kg
[2020-07-25 16:55] LABS: HEMATOCRIT 37.4 % (37.0-47.0); HEMOGLOBIN 12.5 g/dl (12.5-16.0); MEAN CELL VOLUME 85 fl (80.0-100.0); MEAN CORPUSCULAR HEMOGLOBIN 29 pg (27.0-31.0); MEAN CORPUSCULAR HGB CONC 33 g/dl (33.0-37.0); MEAN PLATELET VOLUME 10.2 fl (7.4-10.4); PLATELET COUNT 143 K/mm3 (130-400); RED BLOOD COUNT 4.38 M/mm3 (4.10-5.30); REDCELL DISTRIBUTION WIDTH-CV 18.3 % (11.5-14.5)
[2020-07-25 17:10] LABS: ALBUMIN 3.6 gm/dL (3.5-5.0); BILIRUBIN,TOTAL 1.5 mg/dL (0.0-1.0); CREATININE, serum 1.53 (0.52-1.25); POTASSIUM 3.1 mmol/L (3.4-5.0); TOTAL PROTEIN 6.8 gm/dL (6.4-8.2)
[2020-07-25 17:29] LABS: TROPONIN-I 2.05 ng/mL (0.000-0.035)
[2020-07-25 17:34] LABS: COLLECTION METHOD CATHETER
[2020-07-25 17:45] LABS: BAND 6 % (0-10); LYMPHOCYTE 12 % (20.0-51.0); METAMYELOCYTE 3 % (0-0); MYELOCYTE 2 % (0-0); NEUTROPHILS 75 % (42.0-75.2); PLATELET ESTIMATE NORMAL (NORMAL)
[2020-07-25 17:47] LABS: ANISOCYTOSIS 1+
[2020-07-25 18:02] LABS: MUCOUS Present /lpf; PH 5 (5-8); SQUAMOUS EPITHELIAL None Seen /hpf; URINE APPEARANCE Cloudy; URINE BACTERIA None Seen /hpf; URINE BILIRUBIN Positive (NEGATIVE); URINE BLOOD Negative (NEGATIVE); URINE COLOR Amber; URINE GLUCOSE Negative (NEGATIVE); URINE KETONE Negative (NEGATIVE); URINE LEUKOCYTE ESTERASE Negative (NEGATIVE); URINE NITRATE Negative (NEGATIVE); URINE PROTEIN(semi-quant) 3+ (NEGATIVE); URINE RBC 0-2 /hpf; URINE UROBILINOGEN >=4.0 mg/dL (NEGATIVE)
[2020-07-25 18:31] VITALS: TEMP 100.3
[2020-07-25 19:20] VITALS: BP 97/60; PULSE 88
[2020-07-25 19:51] LABS: MAGNESIUM 1.1 mg/dL (1.6-2.3)
== END 2020-07-25 19:20 | disposition short-term general hospital (02) ==
LOC: COL.ER 16:14
PROVIDERS: Emergency Medicine
DX: N17.9 Acute kidney failure, unspecified (principal); R41.82 Altered mental status, unspecified; R74.8 Abnormal levels of other serum enzymes; E87.6 Hypokalemia; C79.81 Secondary malignant neoplasm of breast; I10 Essential (primary) hypertension; E78.5 Hyperlipidemia, unspecified; I25.10 Atherosclerotic heart disease of native coronary artery without angina pectoris; K21.9 Gastro-esophageal reflux disease without esophagitis; Z90.711 Acquired absence of uterus with remaining cervical stump; Z79.899 Other long term (current) drug therapy; Z79.82 Long term (current) use of aspirin; Z20.822 Contact with and (suspected) exposure to COVID-19
CPT/HCPCS: J0692; J1720; J7030; J7040

== ENCOUNTER 2020-08-12 12:25 | Inpatient (IN) | payer MEDICARE, BC ==
[~2020-08-12] VITALS: Ht 152.4 cm; Wt 72.3 kg
[2020-08-12] VITALS (145 sets, daily range): BP systolic 105; BP diastolic 60; PULSE 90; TEMP 100.2; O2SAT 62–100
[2020-08-12 13:42] LABS: HEMOGLOBIN 12.5 g/dl (12.5-16.0); MEAN CELL VOLUME 86 fl (80.0-100.0); MEAN CORPUSCULAR HEMOGLOBIN 29 pg (27.0-31.0); MEAN CORPUSCULAR HGB CONC 34 g/dl (33.0-37.0); MEAN PLATELET VOLUME 10.5 fl (7.4-10.4); PLATELET COUNT 141 K/mm3 (130-400); RED BLOOD COUNT 4.27 M/mm3 (4.10-5.30); REDCELL DISTRIBUTION WIDTH-CV 19.6 % (11.5-14.5)
[2020-08-12 13:53] LABS: ALBUMIN 3.5 gm/dL (3.5-5.0); BILIRUBIN,TOTAL 1.5 mg/dL (0.0-1.0); CALCIUM 9.9 mg/dL (8.4-10.2); CREATININE, serum 0.99 (0.52-1.25); POTASSIUM 3.7 mmol/L (3.4-5.0); TOTAL PROTEIN 6.5 gm/dL (6.4-8.2)
[2020-08-12 14:04] LABS: HEMATOCRIT 36.9 % (37.0-47.0)
[2020-08-12 14:26] LABS: COLLECTION METHOD CATHETER
[2020-08-12 14:35] LABS: BUDDING YEAST Present /hpf; MUCOUS Present /lpf; PH 5 (5-8); SQUAMOUS EPITHELIAL None Seen /hpf; URINE APPEARANCE Hazy; URINE BACTERIA None Seen /hpf; URINE BILIRUBIN Negative (NEGATIVE); URINE BLOOD Negative (NEGATIVE); URINE COLOR Yellow; URINE GLUCOSE Negative (NEGATIVE); URINE KETONE Negative (NEGATIVE); URINE LEUKOCYTE ESTERASE Negative (NEGATIVE); URINE NITRATE Negative (NEGATIVE); URINE PROTEIN(semi-quant) 2+ (NEGATIVE); URINE RBC 0-2 /hpf; URINE UROBILINOGEN Negative (NEGATIVE); URINE WBC 0-2 /hpf
[2020-08-12 15:24] LABS: CLOSTRIDIUM DIFF A/B NEG; CLOSTRIDIUM DIFF A/B INTERP NonToxigenic C.diff
[2020-08-12 15:31] LABS: ANISOCYTOSIS 2+; BAND 2 % (0-10); LYMPHOCYTE 18 % (20.0-51.0); NEUTROPHILS 76 % (42.0-75.2)
[2020-08-12 15:32] LABS: PLATELET ESTIMATE NORMAL (NORMAL)
--- NOTE | 2020-08-12 22:30 | NUR ---
PATIENT ADMITTED TO UNIT ORIENTED BUT DROWSY. PATIENT IS AWARE OF PLAN OF CARE TO GIVE ABX AND STEROIDS TO TREAT CDIFF. UPON ASSESSMENT, PT BOTTOCKS ARE FOUND TO BE RED AND EXCORIATED, ALL OTHER SKIN INTACT BUT THIN. PT NOT IN ANY PAIN AND FAMILY IS AWARE OF HER ADMISSION. BELONGINGS WITH PATIENT INCLUDE SHOES, PHONE, INSURANCE AGENCY SALES MANAGER, WALLET, PURSE WITH SEVERAL PERSONAL ITEMS, AND DENTURES. PT NOT ABLE TO VERIFY MEDS TAKEN OR WHEN MEDS WERE TAKEN AT HOME. PT HAS NO OTHER CONCERNS AT THIS TIME.
[2020-08-13] VITALS (460 sets, daily range): BP systolic 111–125; BP diastolic 52–82; PULSE 67–89; TEMP 97.6–99.5; O2SAT 62–100
[2020-08-13 05:29] LABS: MEAN CELL VOLUME 88 fl (80.0-100.0); MEAN CORPUSCULAR HGB CONC 34 g/dl (33.0-37.0); MEAN PLATELET VOLUME 9.8 fl (7.4-10.4); PLATELET COUNT 106 K/mm3 (130-400); RED BLOOD COUNT 3.51 M/mm3 (4.10-5.30); REDCELL DISTRIBUTION WIDTH-CV 19.5 % (11.5-14.5)
[2020-08-13 05:44] LABS: HEMATOCRIT 30.9 % (37.0-47.0); HEMOGLOBIN 10.5 g/dl (12.5-16.0); MEAN CORPUSCULAR HEMOGLOBIN 30 pg (27.0-31.0)
[2020-08-13 05:45] LABS: CALCIUM 8.7 mg/dL (8.4-10.2); CREATININE, serum 1.01 (0.52-1.25); MAGNESIUM 2.3 mg/dL (1.6-2.3); POTASSIUM 4.4 mmol/L (3.4-5.0)
[2020-08-13 06:32] LABS: BAND 8 % (0-10); LYMPHOCYTE 11 % (20.0-51.0); NEUTROPHILS 78 % (42.0-75.2)
[2020-08-13 06:33] LABS: HYPOCHROMIA 1+; PLATELET ESTIMATE DECREASED (NORMAL)
--- NOTE | 2020-08-13 07:14 | NUR ---
PT RESTED THROUGHOUT NIGHT. IV ABX AND STEROIDS GIVEN FOR INFECTION. ENCOURAGED REST AND FLUIDS.
--- NOTE | 2020-08-13 07:30 | NUR ---
Patient awake and resting in bed; Reports that she feels better than when she came in. Denies any shorness of breath or pain. Call light left within reach; will continue to monitor.
--- NOTE | 2020-08-13 09:42 | NUR ---
EAMON met with the patient to discuss discharge plan. The patient lives alone in [place]. Her son, Alfonso (ph#[phone]), lives nearby. She reports independence with ADLs and does not have any DME. She states that she has home health services from [facility]. EAMON contacted Beatris at [facility] and confirmed services. The patient's PCP is Dr. Sergey Aleman and she receives her medications from [facility]. The patient's DPOA-HC is in EMR and it designates her son, Alfonso. The patient reports that her daughter is coming from [place] to see her. She reports that her doctors told her that it is unsafe for her to live alone and that her family is talking to different facilities. EAMON then contacted the patient's son, Alfonso, to review the above. Alfonso reports that they are looking into assisted living for the patient. He states that [facility] is full right now and they have a meeting with [facility] on Thursday. Alfonso reports that their plan is for the patient to go to SNF upon discharge and then transition to AL. The patient follows with Dr. Mcguire and has been receiving chemo. Her H&P notes that her last treatment was two weeks ago. SW informed Alfonso that SNF will not be able to take her if she is actively receiving chemo. Alfonso reports that he would be okay holding off for chemo during SNF. Alfonso reports that their preferences for SNF are 1) [facility] 2) [facility]. EAMON contacted and faxed a referral to both facilities. Awaiting screens. EAMON attempted to contact ALMA Simms with Dr. Mcguire, to inquire about treatment and if he would be okay with the patient holding off treatment for SNF. SW left her a voicemail. *Discharge plan: SNF*
--- NOTE | 2020-08-13 11:12 | NUR ---
Demi, RN with Dr. Mcguire, returned 's phone call. Demi reports that Dr. Mcguire is out this week on vacation and that she is unable to ask him about holding off treatment at this time.
--- NOTE | 2020-08-13 15:53 | NUR ---
Spoke with ALMA Spear to give report on patient being transferred to room 315 at this time
--- NOTE | 2020-08-13 16:00 | NUR ---
Patient transferred up from the ICU. Report recieved from ALMA Andersen. Upon initial assessment, S1 and S2 sounds present, Bruit noted, lungs clear to auscultation, bowel sounds present in all four quadrants, patient A&O, excoration noted on gluteal folds, radial and pedal pulses +2 bilaterally. Pulliam catheter in place, securment device in use, no kinks in tubing. Patient denies any pain, discomfort, SOA, or further needs at this time. Will continue to monitor. Fluids running as orderd. Call light in reach. Contact precautions in place.
--- NOTE | 2020-08-13 16:10 | NUR ---
Patient transfered from ICU to medical floor via wheelchair. Alert and oriented and in no distress upon transfer.
--- NOTE | 2020-08-13 20:30 | NUR ---
Initial shift assessment done--denies pain at this time, Pulliam with yellow urien with sediment,, R/IJ TLC with NS at 125cc/hr infusing. Pleasant, alert/oriented, states did have a loose/liquid stool at shift change. Tele put on patient at this time per order.
[2020-08-14 00:19] VITALS: BP 100/54; PULSE 89; TEMP 98.3
[2020-08-14 04:34] VITALS: BP 148/69; PULSE 80; TEMP 98.1
--- NOTE | 2020-08-14 06:00 | NUR ---
States has slept fairly well after Tylenol was given earlier in the shift- VSS,good output per Shasha for this shift
[2020-08-14 06:34] LABS: MEAN CELL VOLUME 87 fl (80.0-100.0); MEAN CORPUSCULAR HGB CONC 34 g/dl (33.0-37.0); MEAN PLATELET VOLUME 9.5 fl (7.4-10.4); PLATELET COUNT 117 K/mm3 (130-400); REDCELL DISTRIBUTION WIDTH-CV 19.2 % (11.5-14.5)
[2020-08-14 06:36] LABS: HEMATOCRIT 27.9 % (37.0-47.0); HEMOGLOBIN 9.5 g/dl (12.5-16.0); MEAN CORPUSCULAR HEMOGLOBIN 30 pg (27.0-31.0)
[2020-08-14 06:46] LABS: ALBUMIN 2.6 gm/dL (3.5-5.0); BILIRUBIN,TOTAL 0.6 mg/dL (0.0-1.0); CALCIUM 8.5 mg/dL (8.4-10.2); CREATININE, serum 0.75 (0.52-1.25); MAGNESIUM 1.5 mg/dL (1.6-2.3); POTASSIUM 3.4 mmol/L (3.4-5.0); TOTAL PROTEIN 5.3 gm/dL (6.4-8.2)
[2020-08-14 07:35] LABS: BAND 13 % (0-10); EOSINOPHIL 1 % (0-4); LYMPHOCYTE 6 % (20.0-51.0); NEUTROPHILS 75 % (42.0-75.2); PLATELET ESTIMATE DECREASED (NORMAL)
[2020-08-14 07:43] VITALS: BP 134/53; PULSE 81; TEMP 97.9
--- NOTE | 2020-08-14 08:00 | NUR ---
Patient called to use the bathroom, nurse in the room to assist the patient to the bathroom. Patient incontinent of BM. IV CDI, fluids infusing. VSS. Contact precautions in place. No further needs expressed from the patient. Call light within reach. Bed alarm on
[2020-08-14 11:18] VITALS: BP 150/62; PULSE 71
[2020-08-14] MEDS ORDERED: ALDACTONE 25MG25 M1 PO (11:39)
[2020-08-14] MEDS ORDERED: ACTOS30 MG PO (11:39)
--- NOTE | 2020-08-14 12:42 | NUR ---
Patient had one loose BM in the beginning of the shift. worked with OT and PT and tolerated well. Sitting up in the recliner finishing up lunch. Denies pain and discomfort. IV CDI, fluids infusing. No further needs expressed from the patient. Call light within reach. Chair alarm on
--- NOTE | 2020-08-14 15:15 | NUR ---
Mva Still Operator faxed clinical updates to Jessy at [facility] and Chetan at [facility]. Chetan at [facility] advised that they can tentatively accept patient. EAMON contacted Jessy at [facility] who advised they can accept as long as patient will not require radiation during rehab and is not having any loose stools. EAMON contacted ALMA Simms at Dr. Mcguire's office to leave a message about Lalo's question about radiation.
[2020-08-14 16:34] VITALS: BP 144/65; PULSE 81; TEMP 98.2
[2020-08-14 19:22] VITALS: BP 130/54; PULSE 85; TEMP 98.5
--- NOTE | 2020-08-14 19:36 | NUR ---
REPORT GIVEN TO ALMA BARBA
[2020-08-15 00:44] VITALS: BP 145/68; PULSE 86; TEMP 98.6
[2020-08-15 04:48] VITALS: BP 154/80; PULSE 99; TEMP 99
[2020-08-15 06:12] LABS: CALCIUM 9.3 mg/dL (8.4-10.2); CREATININE, serum 0.71 (0.52-1.25); MAGNESIUM 1.8 mg/dL (1.6-2.3); POTASSIUM 4.1 mmol/L (3.4-5.0)
[2020-08-15 08:08] VITALS: BP 155/70; PULSE 86; TEMP 99.2
[2020-08-15 11:19] VITALS: BP 155/65; PULSE 81; TEMP 98.5
[2020-08-15] MEDS ORDERED: AMOXICILLIN 8751 TAB PO (11:36)
[2020-08-15] MEDS ORDERED: PROBIOTIC ACID1 EAC3 PO (11:37)
[2020-08-15] MEDS ORDERED: MAG-OX 400400 MG/TAB PO (11:38)
--- NOTE | 2020-08-15 14:12 | NUR ---
Green Marketing Specialist contacted ALMA Simms at Dr. Mcguire's office who advised they do not know about patient's radiation as Dr. Mcguire is out, however SW could contact Dr. Ortega's office. EAMON contacted Dr. Perez office and was advised that they have not seen patient yet and have no records on her, so they would not be able to provide any additional information. EAMON faxed clinical updates to both [facility] and [facility]. EAMON contacted Jessy at [facility] and provided update on radiation. After reviewing clinical updates, Jessy advised they can accept. [facility] can also accept. EAMON attended clinical rounds with the team and patient is ready for discharge today. Patient's daughter, Amy is at bedside and advised she is touring both facilities this morning and that a decision will be made today on preference. After Amy had toured both facilities, SW followed up with patient and her daughter, Amy. Patient advised that after discussion with family, her preference is to go to [facility] today. EAMON contacted Chetan at [facility] and faxed discharge orders. EAMON set transport time for 1530. SW notified patient and family of transport time. EAMON collaborated with Chetan from [facility] who advised patient will not need a new COVID test as her last on on 08/12/20 was negative. EAMON notified Jessy at [facility] that patient selected a different facility. Discharge Plan: [facility] skilled
[2020-08-15 15:22] VITALS: BP 155/65; PULSE 81; TEMP 98.5
--- NOTE | 2020-08-15 15:34 | NUR ---
Patient transferring to [facility], I have removed her central line, I have called report to receiving nurse at [facility]
== END 2020-08-15 15:40 | DRG 872 ==
LOC: COL.ER 12:25 → ICU 18:39 → MEDICAL 08-13 16:08
PROVIDERS: Internal Medicine; Nurse Practitioner Primary Care; Student in an Organized Health Care Education/Training Program; ADMIT Hospitalist
DX: A41.9 Sepsis, unspecified organism (principal); K57.32 Diverticulitis of large intestine without perforation or abscess without bleeding; C64.2 Malignant neoplasm of left kidney, except renal pelvis; C79.31 Secondary malignant neoplasm of brain; M48.56XA Collapsed vertebra, not elsewhere classified, lumbar region, initial encounter for fracture; D84.89 Other immunodeficiencies; I95.9 Hypotension, unspecified; K21.9 Gastro-esophageal reflux disease without esophagitis; E78.5 Hyperlipidemia, unspecified; I25.10 Atherosclerotic heart disease of native coronary artery without angina pectoris; E83.42 Hypomagnesemia; E80.6 Other disorders of bilirubin metabolism; D64.9 Anemia, unspecified; Z20.828 Contact with and (suspected) exposure to other viral communicable diseases; I10 Essential (primary) hypertension; R53.81 Other malaise; Z86.16 Personal history of COVID-19; Z95.818 Presence of other cardiac implants and grafts; Z90.711 Acquired absence of uterus with remaining cervical stump
CPT/HCPCS: 99223-AI; 99232-AI; J0744; J1100; J1650; J2543; J3475; J3480; J7030; J8540; Q9967

== ENCOUNTER 2020-09-10 11:53 | Inpatient (IN) | payer MEDICARE, BC ==
[2020-09-10] VITALS (68 sets, daily range): BP systolic 146; BP diastolic 94; PULSE 84; TEMP 98.3; O2SAT 86–100
[~2020-09-10] VITALS: Ht 154.9 cm; Wt 77.8 kg
[~2020-09-10 11:53] MED LIST changes: +ACTOS30 MG PO; +ALDACTONE 25MG25 M1 PO; +AMOXICILLIN 8751 TAB PO; +MAG-OX 400400 MG/TAB PO
[2020-09-10 12:31] LABS: BASO # 0.1 (0.0-0.2); BASO % 0.5 % (0.0-2.0); EOS # 0.2 (0.0-0.7); EOS % 1.2 % (0-4.0); GRAN # 7.8 (1.4-6.5); GRAN % 59.8 % (42.2-75.2); HEMOGLOBIN 10.6 g/dl (12.5-16.0); LYMPH % 30.5 % (20.0-51.0); MEAN CELL VOLUME 97 fl (80.0-100.0); MEAN CORPUSCULAR HEMOGLOBIN 29 pg (27.0-31.0); MEAN CORPUSCULAR HGB CONC 30 g/dl (33.0-37.0); MONO # 0.9 (0.1-0.6); PLATELET COUNT 186 K/mm3 (130-400); RED BLOOD COUNT 3.62 M/mm3 (4.10-5.30); REDCELL DISTRIBUTION WIDTH-CV 17.5 % (11.5-14.5)
[2020-09-10 12:32] LABS: HEMATOCRIT 35.1 % (37.0-47.0)
[2020-09-10 12:42] LABS: ALANINE AMINOTRANSFERASE 20 U/L (4-34); ALBUMIN 3.8 gm/dL (3.5-5.0); ALKALINE PHOSPHATASE 57 U/L (50-136); ANION GAP 12 mmol/L (7-16); AST,SGOT 37 U/L (15-37); BILIRUBIN,TOTAL 0.5 mg/dL (0.0-1.0); BLOOD UREA NITROGEN 10 mg/dL (7-17); CALCIUM 10.5 mg/dL (8.4-10.2); CARBON DIOXIDE 23 mmol/L (22-30); CHLORIDE 109 mmol/L (98-107); CREATININE, serum 0.79 (0.52-1.25); GLUCOSE 179 mg/dL (74-106); POTASSIUM 3.5 mmol/L (3.4-5.0); SODIUM 144 mmol/L (137-145); TOTAL PROTEIN 6.9 gm/dL (6.4-8.2)
[2020-09-10 12:50] LABS: COLLECTION METHOD CATHETER
[2020-09-10 12:54] LABS: ARTERIAL BLD GAS TCO2 CT 26.1; ARTERIAL BLOOD GAS BASE EXCESS -3.8 (-2-2); ARTERIAL BLOOD GAS HCO3 24.3 meq/L (22-26); ARTERIAL BLOOD GAS PCO2 59.2 mmHg (35-45); ARTERIAL BLOOD GAS PO2 77.7 mmHg (80-100); ARTERIAL BLOOD GAS pH 7.23 (7.35-7.45)
[2020-09-10 12:54] LABS: TROPONIN-I 0.014 ng/mL (0.000-0.035)
[2020-09-10 12:56] LABS: MUCOUS Present /lpf; PH 6 (5-8); SQUAMOUS EPITHELIAL 0-2 /hpf; URINE APPEARANCE Clear; URINE BACTERIA None Seen /hpf; URINE BILIRUBIN Negative (NEGATIVE); URINE BLOOD Negative (NEGATIVE); URINE COLOR Yellow; URINE GLUCOSE 1+ (NEGATIVE); URINE KETONE Negative (NEGATIVE); URINE LEUKOCYTE ESTERASE Negative (NEGATIVE); URINE NITRATE Negative (NEGATIVE); URINE PROTEIN(semi-quant) 3+ (NEGATIVE); URINE RBC 0-2 /hpf; URINE UROBILINOGEN Negative (NEGATIVE)
[2020-09-10 13:49] LABS: C-REACTIVE PROTEIN < 0.5 mg/dL (0.0-0.9)
[2020-09-10 14:00] LABS: INR 1.1 (0.8-3.0); PROTHROMBIN TIME 12.3 SECONDS (9.7-12.8)
[2020-09-10 16:10] LABS: ARTERIAL BLD GAS O2 SATURATION 95.1 % (92-100); ARTERIAL BLOOD GAS BASE EXCESS -1.1 (-2-2); ARTERIAL BLOOD GAS HCO3 26.3 meq/L (22-26); ARTERIAL BLOOD GAS PCO2 57.1 mmHg (35-45); ARTERIAL BLOOD GAS PO2 85.8 mmHg (80-100); ARTERIAL BLOOD GAS pH 7.28 (7.35-7.45)
--- NOTE | 2020-09-10 16:35 | NUR ---
Vancomycin Initial Dosing Pharmacy Note Ordering provider: Jose Guadalupe Indication/duration: PNA, 7 days LABS: SCr 0.79, CrCl~48, GFR 71 Recommendation: Will continue Vancomycin 1 gm IV q12h. Pharmacy will continue to closely monitor and check a Vancomycin trough on 09/12/20. Loading dose: 1.5 grams Maintenance dose: 1 gram every 12 hours Trough goal: 15-20 ug/mL
--- NOTE | 2020-09-10 18:32 | NUR ---
190 - JEANNE GAINES AT BEDSIDE FOR INTUBATION. FENTANYL 100 MCG, VERSED 2 MG, VECURONIIUM 6 MG GIVEN IVP. 190 - 7.5 ETT 22 CM AT GUM. 1906 - PROPOFOL GTT STARTED AT 20 MCG/KG/MIN = 9.3 ML/HR. 18FR OG TUBE PLACED 60 CM AT LIP. AVELAR PLACED IN ED WITH CLEAR YELLOW URINE. 1924 - FAMILY AT BEDSIDE. 1932 - RADIOLOGY AT BEDSIDE FOR CXR.
--- NOTE | 2020-09-10 18:46 | NUR ---
Patient arrived to ICU-8 via stretcher. Patient currently on Bipap. RT in the room and set up to intubate the patient. Patient will move towards noise when spoken too. No verbalization at this time. Patient has triple lumen central line to left jugular. 20G INT to left AC. Skin w/d. Color pale pink. Lungs diminshed throughout. Resp even/unlabored. HR regular. Abd soft with bowel sounds x [address] with clear yellow urine. PPP. Noted to have 2+ edema in left foot. No skin issues noted. Rectal area slightly reddened. Patient had fall 2 weeks ago with known hematoma to right outer aspect of head. Per report patient had seizure in waiting room. VS 146/94-84-24-96% on Bipap- Temp 98.3 (A). Son in waiting room
--- NOTE | 2020-09-10 19:29 | NUR ---
Report called to ALMA Sumner at [facility] in [place]. Patient will be transferred to Room [facility] Plata. Report # . Questions answered. Family left at this time.
--- NOTE | 2020-09-10 20:13 | NUR ---
[facility] at bedside for transport. BP 137/74, 93% on 50% FiO2 per vent, HR 71. Patient continues on propofol at 20 mcg/kg/min with RASS -3. Report to [facility] team; all questions answered. Patient leaves department on transport vent.
== END 2020-09-10 20:15 | disposition short-term general hospital (02) | DRG 871 ==
LOC: COL.ER 11:53 → ICU 17:22 → COL.ER 17:23 → ICU 20:15
PROVIDERS: Emergency Medicine; Physician Assistant; ADMIT Internal Medicine
PROC: 02HV33Z Insertion of Infusion Device into Superior Vena Cava, Percutaneous Approach (ICD-10-PCS; principal; 2020-09-10)
PROC: 0BH17EZ Insertion of Endotracheal Airway into Trachea, Via Natural or Artificial Opening (ICD-10-PCS; 2020-09-10)
PROC: 5A1935Z Respiratory Ventilation, Less than 24 Consecutive Hours (ICD-10-PCS; 2020-09-10)
DX: A41.9 Sepsis, unspecified organism (principal); J69.0 Pneumonitis due to inhalation of food and vomit; J96.02 Acute respiratory failure with hypercapnia; C64.9 Malignant neoplasm of unspecified kidney, except renal pelvis; C79.31 Secondary malignant neoplasm of brain; G93.40 Encephalopathy, unspecified; I50.32 Chronic diastolic (congestive) heart failure; Z66 Do not resuscitate; I25.10 Atherosclerotic heart disease of native coronary artery without angina pectoris; R65.20 Severe sepsis without septic shock; E78.5 Hyperlipidemia, unspecified; K21.9 Gastro-esophageal reflux disease without esophagitis; R56.9 Unspecified convulsions; R53.81 Other malaise; E83.52 Hypercalcemia; D64.9 Anemia, unspecified; R73.9 Hyperglycemia, unspecified; I27.20 Pulmonary hypertension, unspecified; Z95.5 Presence of coronary angioplasty implant and graft; Z86.16 Personal history of COVID-19; Z79.82 Long term (current) use of aspirin; Z20.822 Contact with and (suspected) exposure to COVID-19
CPT/HCPCS: J1940; J1953; J1956; J2060; J2250; J2543; J2704; J2920; J3010; J3370; J7030; J7050